=== PATIENT | male | born 1990 | race Caucasian/White ===

== ENCOUNTER 2019-01-17 12:49 | Day surgery (SDC) | payer OTHER ==
[~2019-01-17 12:49] MED LIST: BUPIVACAINE 0.5% PF 30 ML VIAL ONE; LIDOCAINE MPF 1%-EPI 1:200000 30 ML VIAL ONE
[2019-01-17] MEDS ORDERED: LACTATED RINGERS 1,000 ML IV ONE ×2 (13:05→16:44)
--- NOTE | 2019-01-17 13:49 | ANESTHESIA ---
Pre-Anesthesia VS, & Labs - Diagnosis pilonidal cyst - Procedure pilonidal cyst removal Vital Signs: Temp Pulse Resp BP Pulse Ox 36.6 C 59 L 16 147/99 H 98 01/17/19 13:06 01/17/19 13:06 01/17/19 13:06 01/17/19 13:06 01/17/19 13:06 Height 6 ft Weight (kg) 95.8 kg Home Medications and Allergies Allergies/Adverse Reactions: Allergies Allergy/AdvReac Type Severity Reaction Status Date / Time No Known Drug Allergies Allergy Verified 01/04/19 14:19 Anes History & Medical History - Anesthetic History Anesthesia Complications: reports: No previous complications Family history of Anesthesia Complications: Denies Family history of Malignant Hyperthermia: Denies - Medical History Cardiovascular: reports: None Pulmonary: reports: None Gastrointestinal: reports: None Urinary: reports: None Neuro: reports: None Musculoskeletal: reports: None Endocrine/Autoimmune: reports: None Skin: reports: None Psychosocial: reports: Other ("couple drinks a week") - Surgical History Orthopedic: ACL reconstruction Exam General: Alert, Oriented x3, Cooperative, No acute distress Dental: WNL Mouth Openin Fingerbreadth Neck Mobility: Normal Mallampati classification: II Thyromental Distance: 4-6 cm Respiratory: Lungs clear, Normal breath sounds, No respiratory distress, No accessory muscle use Cardiovascular: Regular rate, Normal S1, Normal S2, No murmurs Abdomen: Normal bowel sounds, Soft, No tenderness, No hepatospenomegaly, No masses Extremities: No clubbing, No cyanosis, No edema, Normal pulses, No tenderness/swelling Neurological: Normal gait, Normal speech, Strength at 5/5 X4 ext, Normal tone, Sensation intact, Cranial nerves 3-12 NL, Reflexes 2+ Mental/Cognitive Status: Alert/Oriented X3, Normal for patient Cognitive Status: Within normal limits Plan Anesthesia Type: General Consent for Procedure(s) Verified and Reviewed: Yes Code Status: Attempt Resuscitation ASA classification: 1-Healthy patient Is this case an emergency?: No
[2019-01-17] MEDS ORDERED: PROPOFOL 200 MG/20 ML VIAL IVP ONE (15:00)
[2019-01-17] MEDS ORDERED: GLYCOPYRROLATE 1 MG/5 ML VIAL IVP ONE (15:00)
[2019-01-17] MEDS ORDERED: SUCCINYLCHOLINE 200 MG/10 ML VIAL IVP ONE (15:00)
[2019-01-17] MEDS ORDERED: ROCURONIUM 50 MG/5 ML VIAL IVP ONE (15:00)
[2019-01-17] MEDS ORDERED: DEXAMETHASONE 4 MG/ML VIAL IVP ONE (15:00)
[2019-01-17] MEDS ORDERED: fentaNYL 100 MCG/2 ML VIAL IVP ONE (15:00)
[2019-01-17] MEDS ORDERED: ONDANSETRON 4 MG/2 ML VIAL IVP ONE (15:00)
[2019-01-17] MEDS ORDERED: MIDAZOLAM 2 MG/2 ML VIAL IVP ONE (15:00)
[2019-01-17] MEDS ORDERED: metroNIDAZOLE 500 MG/100 ML 500 MG/100 ML BAG ONE (15:52)
--- NOTE | 2019-01-17 16:08 | OPERATIVE REPORT ---
Operative Report - General Procedure Date: 01/17/19 Planned Procedure: Excision of pilonidal cyst with closure Pre-Op Diagnosis: Pilonidal cyst Procedure Performed: Excision of pilonidal cyst with closure Post Op Diagnosis: Pilonidal cyst - Procedure Note Primary Surgeon: Elaina Anesthesia Provider: EDUARDO Call Anesthesia Technique: General ET tube, Local Pathology: Portion of skin and cystic lesion to pathology in formalin Estimated Blood Loss (mL): 10 Findings: 7 x 4 cm pilonidal cyst with associated abscess cavity Complications: None apparent - Other Other Information/Narrative: After obtaining informed consent, the patient is brought to the operating room.Following successful induction of general endotracheal anesthesia, appropriate padding of all bony prominences, and placement of appropriate monitors, the patient was rolled gently to the prone jackknife position. The perianalAnd inferior spinal regions were prepped and draped in the standard surgical fashion.A timeout was held per scope protocol. All elements of the surgical safety checklist were followed before, during, and after the procedure. Using a marker, an incision was fashioned around the existing puncta to include all of the obvious areas affected by the cystic lesion. The lesion itself was approximately 7 x 3 cm in greatest dimension. This area was anesthetized with local anesthetic. An incision was created sharply and carried down through the tissue to remove the entire specimen in a single piece. The elliptical tissue was then marked with a short stitch superior and passed from the table. The defect was slightly off center to the left side. It extended to the midline. The entire area was irrigated with copious amounts of warm saline solution and aspirated free of all fluid and particulate matter. We were careful to have not entered the abscess cavity when the lesion was excised. The wound was then closed in multiple layers with Vicryl suture and 3-0 nylon sutures were applied to the skin. All sponge, needle, and instrument counts were correct at the conclusion of the case. The patient was allowed to awaken from anesthesia without difficulty and taken to the postanesthesia care unit in good condition.
[2019-01-17] MEDS ORDERED: ONDANSETRON 4 MG/2 ML VIAL IVP PRN (16:11)
[2019-01-17] MEDS ORDERED: oxyCODONE 5 MG TABLET PO PRN (16:11)
[2019-01-17] MEDS ORDERED: HYDROmorphone 0.5 MG/0.5 ML SYRINGE IVP PRN (16:11)
[2019-01-17 17:08] VITALS: BP 119/73
== END 2019-01-17 12:50 | disposition home or self-care (01) ==
LOC: SDS 12:49
PROVIDERS: ATTEND Surgery
PROC: 0JB90ZZ Excision of Buttock Subcutaneous Tissue and Fascia, Open Approach (ICD-10-PCS; principal; 2019-01-17 14:45)
DX: L05.01 Pilonidal cyst with abscess (principal); Z87.891 Personal history of nicotine dependence
CPT/HCPCS: 11770; A9270; J0330; J7120

== ENCOUNTER 2022-06-27 18:00 | Outpatient (CLI) | payer OTHER | END 2022-06-27 23:59 | disposition critical access hospital (66) | LOC: EMS 18:00 | DX: R53.1 Weakness (principal); R42 Dizziness and giddiness; R20.0 Anesthesia of skin; R47.81 Slurred speech; R25.1 Tremor, unspecified | CPT/HCPCS: A0425; A0429 ==

== ENCOUNTER 2022-06-27 18:07 | Observation (INO) | payer OTHER ==
--- NOTE | 2022-06-27 18:14 | ED Physician Documentation ---
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 EMS states that he had sudden onset of slurred speech, difficulty with word finding that occurred about 30 minutes prior to arrival. They state that he improved on route to the hospital but is having difficulty with word finding again upon arrival. Patient denies any fevers or trauma. He states that he moved here but he does not know from where. He denies taking any medications or have any medical history. Denies any drug usage. Has used nicotine in concentrated form. Has reportedly had intermittent headaches for the past 3 days, the patient's was on scene. Review of Systems Unable to obtain: AMS PD PAST MEDICAL HISTORY - Past Medical History Cardiovascular: None Respiratory: None Neuro: None Endocrine/Autoimmune: None GI: None : None HEENT: None Psych: None Musculoskeletal: None Derm: None - Past Surgical History Ortho: ACL reconstruction - Present Medications Home Medications: Ambulatory Orders Medication Instructions Recorded Confirmed Ondansetron Odt [Zofran] 4 mg TL Q6H PRN #10 tablet 01/17/19 oxyCODONE [Roxicodone] 5 mg PO Q4H PRN #30 tablet 01/17/19 - Allergies Allergies/Adverse Reactions: Allergies Allergy/AdvReac Type Severity Reaction Status Date / Time No Known Drug Allergies Allergy Verified 06/27/22 18:23 PD ED PE NORMAL - Vitals Vital signs reviewed: Yes - General General: No acute distress, Other (Alert, difficulty with word finding, slow to respond.) - HEENT HEENT: Atraumatic, PERRL, Moist mucous membranes, Pharynx benign - Neck Neck: Supple, no meningeal sign - Cardiac Cardiac: No murmur, Strong equal pulses, Other (Tachycardic) - Respiratory Respiratory: No respiratory distress, Clear bilaterally - Abdomen Abdomen: Soft, Non tender, Non distended - Derm Derm: Warm and dry, No rash - Extremities Extremities: No deformity, No edema, No calf tenderness / cord - Neuro Neuro: business process consultant 2-12 intact, No motor deficit, No sensory deficit, Normal speech Eye Opening: Spontaneous Motor: Obeys Commands Verbal: Confused GCS Score: 14 - Psych Psych: Normal mood, Normal affect NIHSS - Time Time: 18:10 - Level of Consciousness Level of consciousness: (0) Alert, Keenly responsive LOC Questions: (0) Answers both Q's correct LOC Commands: (0) Performs both correctly - Gaze Best Gaze: (0) Normal - Visual Visual: (0) No loss - Facial Palsy Facial Palsy: (0) Normal, symmetrical movement - Motor Arms (both separate) Motor Arm (right): (0) No drift Motor Arm (left): (0) No drift - Motor Legs (both separate) Motor Leg (right): (0) No drift Motor Leg (left): (0) No drift - Limb Ataxia Limb Ataxia: (0) Absent - Sensory Sensory: (0) Normal - Best Language Best Language: (1) [id number] - Dysarthria Dysarthria: (2) Severe dysarthria - Extinction and Inattention (formally neg Extinction and inattention: (0) No abnormality - Total Score/Results Total Score/Result: 3 Results - Vitals Vitals: Vital Signs - 24 hr 06/27/22 06/27/22 06/27/22 18:51 20:00 20:30 Temperature 37.3 C Heart Rate 118 H 116 H 109 H Respiratory 29 H 19 25 H Rate Blood Pressure 167/86 H 175/97 H 128/110 H O2 Saturation 99 99 98 06/27/22 06/27/22 06/27/22 21:00 21:30 22:00 Temperature Heart Rate 98 82 72 Respiratory 18 Rate Blood Pressure 148/72 H O2 Saturation 98 100 100 Oxygen O2 Source Room air - EKG (time done) 1846 EKG releavant findings:: EKG personally interpreted by author of this note. Relevant findings are: Rate: Rate (enter#) (122) Rhythm: Sinus tachycardia [place]: Normal Intervals: Normal SD QRS: Normal Ischemia: Normal ST segments - Labs Labs: Laboratory Tests 06/27/22 06/27/22 06/27/22 18:44 18:44 18:44 WBC 8.6 RBC 5.24 Hgb 16.2 Hct 45.2 MCV 86.3 MCH 30.9 MCHC 35.8 RDW 11.8 L Plt Count 254 MPV 9.6 Neut # (Auto) 4.4 Lymph # (Auto) 3.3 [place] # (Auto) 0.7 Eos # (Auto) 0.2 Baso # (Auto) 0.0 Absolute Nucleated RBC 0.00 Nucleated RBC % 0.0 Sodium 140 Potassium 3.0 L Chloride 102 Carbon Dioxide 24 Anion Gap 14.0 H BUN 16 Creatinine 0.9 Estimated GFR (MDRD) 98 Glucose 121 H Calcium 9.1 Total Bilirubin 0.9 AST 37 ALT 65 H Alkaline Phosphatase 70 Total Protein 7.6 Albumin 4.7 Globulin 2.9 Albumin/Globulin Ratio 1.6 Lipase 39 TSH 1.19 Urine Color Urine Clarity Urine pH Ur Specific Amelia Urine Protein Urine Glucose (UA) Urine Ketones Urine Occult Blood Urine Nitrite Urine Bilirubin Urine Urobilinogen Ur Leukocyte Esterase Ur Microscopic Review Urine Culture Comments Salicylates < 6.0 Urine Opiates Screen Ur Oxycodone Screen Urine Methadone Screen Ur Propoxyphene Screen Acetaminophen < 10 L Ur Barbiturates Screen Ur Tricyclics Screen Ur Phencyclidine Scrn Ur Amphetamine Screen U Methamphetamines Scrn U Benzodiazepines Scrn Urine Cocaine Screen U Cannabinoids Screen Ethyl Alcohol < 5.0 06/27/22 21:20 WBC RBC Hgb Hct MCV MCH MCHC RDW Plt Count MPV Neut # (Auto) Lymph # (Auto) [place] # (Auto) Eos # (Auto) Baso # (Auto) Absolute Nucleated RBC Nucleated RBC % Sodium Potassium Chloride Carbon Dioxide Anion Gap BUN Creatinine Estimated GFR (MDRD) Glucose Calcium Total Bilirubin AST ALT Alkaline Phosphatase Total Protein Albumin Globulin Albumin/Globulin Ratio Lipase TSH Urine Color YELLOW Urine Clarity CLEAR Urine pH 7.0 Ur Specific Amelia <=1.005 Urine Protein NEGATIVE Urine Glucose (UA) NEGATIVE Urine Ketones NEGATIVE Urine Occult Blood TRACE-LYSE Urine Nitrite NEGATIVE Urine Bilirubin NEGATIVE Urine Urobilinogen 0.2 (NORMAL) Ur Leukocyte Esterase NEGATIVE Ur Microscopic Review NOT INDICATED Urine Culture Comments NOT INDICATED Salicylates Urine Opiates Screen NEGATIVE Ur Oxycodone Screen NEGATIVE Urine Methadone Screen NEGATIVE Ur Propoxyphene Screen NEGATIVE Acetaminophen Ur Barbiturates Screen NEGATIVE Ur Tricyclics Screen NEGATIVE Ur Phencyclidine Scrn NEGATIVE Ur Amphetamine Screen NEGATIVE U Methamphetamines Scrn NEGATIVE U Benzodiazepines Scrn POSITIVE H Urine Cocaine Screen NEGATIVE U Cannabinoids Screen NEGATIVE Ethyl Alcohol - Rads (name of study) CT angio head Relevant Findings:: Final report received, See rad report CT angio neck Relevant Findings:: Final report received, See rad report MRI brain without Relevant Findings:: Final report received, See rad report PD Medical Decision Making - ED course Complexity details: reviewed results, re-evaluated patient, considered differential, d/w patient, d/w family, d/w systems security consultant ED course: The patient was taken immediately upon arrival to CT. CT head and neck angiogram does not show any acute abnormalities. Patient was activated as a code stroke. The patient was evaluated by neurology. Dr. Chou, neuro, Offered the patient tPA, but due to confusion the patient was having difficulty understanding this. Patient appeared very agitated and anxious as well. The patient's did arrive in the emergency department after this consultation. She states that they have moved here from [place]. She states that he was with a friend last night who is also in the [employer]. She does state that he uses nicotine ZYN pouches. As the patient is rapidly improving, she declines tPA at this time. Patient did improve with Ativan. No acute findings on brain MRI. His heart rate decreased, blood pressure decreased, did complain of a continued headache and this was treated with Toradol and droperidol IV. He is still having some w ord finding difficulties and difficulties with memory. Possible complex migraine versus accidental nicotine overdose. He was using 6 mg nicotine patches, he does not recall exactly how many he used today. We will place him in observation overnight for reassessment in the morning. Discussed the case with the telemetry hospitalist who accepts. This document was made in part using voice recognition software. While efforts are made to proofread this document, sound alike and grammatical errors may occur. Departure - Departure Disposition: ED Place in Observation Clinical Impression: Altered mental status Qualifiers: Altered mental status type: unspecified Qualified Code(s): R41.82 - Altered mental status, unspecified Migraine Qualifiers: Migraine type: unspecified Status migrainosus presence: without status migrainosus Intractability: not intractable Qualified Code(s): G43.909 - Migraine, unspecified, not intractable, without status migrainosus Condition: Stable
[2022-06-27] MEDS ORDERED: iohexoL-300 100 ML VIAL IVP ONE (18:40)
--- NOTE | 2022-06-27 18:46 | CT Report ---
PROCEDURE: CT angiogram neck with contrast INDICATIONS: dysarthria CONTRAST: 80ml omni 300 TECHNIQUE: After the administration of intravenous contrast, 1.5 mm axial sections acquired from the aortic arch to the [place] of [place]. Coronal 3-D maximum intensity projection (MIP) and/or volume rendering ref ormats were then performed. For radiation dose reduction, the following was used: automated exposur e control, adjustment of mA and/or kV according to patient size. COMPARISON: None. FINDINGS: Image quality: Study is limited by bolus timing Carotid system: The great vessels demonstrate a conventional anatomy as they arise from the aortic a rch. The origins of the common carotid arteries appear patent. The common carotid arteries demonstr ate normal calibers and courses. The bifurcation regions appear normal bilaterally. The internal ca rotid arteries demonstrate normal caliber and course. Posterior circulation: The origins of the vertebral arteries appear patent. The more superior porti ons of the vertebral arteries demonstrate normal course and caliber. They join to form a normal appe aring basilar artery. Soft tissues: Visualized neck soft tissues demonstrate no suspicious abnormalities. The thyroid is normal in size and there are no incidental findings. Bones: No suspicious bony lesions. Visualized cervical spine appears normally aligned. IMPRESSION: Study limited by bolus timing. No evidence of large vessel occlusion, significant stenosis or aneurys m in the neck The estimate of stenosis included in the report of the imaging study was calculated using the NASCET method Reviewed by: Vin Rothman MD on 06/27/2022 5:44 PM ITZ Approved by: Vin Rothman MD on 06/27/2022 5:44 PM AKKRISTEN Station ID: [id number]
--- NOTE | 2022-06-27 18:47 | CT Report ---
PROCEDURE: ANGIO HEAD W/WO INDICATIONS: dysarthria CONTRAST: 80ml omni 300 TECHNIQUE: Precontrast 4.5 mm thick angled axial sections acquired from the foramen magnum to the vertex. Afte r the administration of intravenous contrast, 1 mm thick sections acquired through the [place] of [place] is. Postcontrast 4.5 mm thick sections then re-acquired from the foramen magnum to the vertex. 3-di mensional vjusqcq-qzzzbxquh-ucosyozycm (MIP) and/or volume rendering reformats were acquired of the c entral intracranial vasculature. For radiation dose reduction, the following was used: automated ex posure control, adjustment of mA and/or kV according to patient size. COMPARISON: Not available. FINDINGS: Image quality: There are motion artifacts at the skull base. Arteries are suboptimally opacified jasbir use of injected malfunction. Anterior and posterior circulation: Poorly opacified cerebral arteries. CSF spaces: Ventricles are normal in size and shape. Basal cisterns are patent. No extra-axial flu id collections. Brain: No midline shift. No intracranial bleeds or masses. Coronel-white matter interface appears int act. Skull and face: Calvarium and facial bones appear intact, without suspicious lesions. Sinuses: Visualized sinuses and mastoids are clear. IMPRESSION: 1. No acute intracranial abnormality disease. 2. Cerebral angiogram images are suboptimal due to injector malfunction. Recommend repeat examination when clinically feasible. Reviewed by: Rivas Garcia MD on 06/27/2022 6:45 PM PDT Approved by: Rivas Garcia MD on 06/27/2022 6:45 PM PDT Station ID: [id number]
[2022-06-27] MEDS ORDERED: iohexoL-300 100 ML VIAL ONE (18:48)
[2022-06-27 18:51] LABS: BASOPHILS % (AUTO) 0.2 %; EOSINOPHILS # (AUTO) 0.2 10^3/uL (0.0-0.7); EOSINOPHILS % (AUTO) 1.7 %; HCT - HEMATOCRIT 45.2 % (42.0-52.0); HGB - HEMOGLOBIN 16.2 g/dL (14.0-18.0); LYMPHOCYTES # (AUTO) 3.3 10^3/uL (1.5-3.5); LYMPHOCYTES % (AUTO) 37.9 %; MEAN CORPUSCULAR HEMOGLOBIN 30.9 pg (27.0-31.0); MEAN CORPUSCULAR HGB CONC 35.8 g/dL (32.0-36.0); MEAN CORPUSCULAR VOLUME 86.3 fL (80.0-94.0); MEAN PLATELET VOLUME 9.6 fL (7.4-11.4); MONOCYTES # (AUTO) 0.7 10^3/uL (0.0-1.0); MONOCYTES % (AUTO) 8.3 %; NEUTROPHILS # (AUTO) 4.4 10^3/uL (1.5-6.6); NEUTROPHILS % (AUTO) 51.7 %; PLT - PLATELET COUNT 254 10^3/uL (130-450); RED BLOOD COUNT 5.24 10^6/uL (4.70-6.10); RED CELL DISTRIBUTION WIDTH 11.8 % (12.0-15.0); WHITE BLOOD COUNT 8.6 x10^3/uL (4.8-10.8)
[2022-06-27] MEDS ORDERED: LORazepam 2 MG/ML VIAL IVP STA (18:52)
[2022-06-27 19:10] LABS: ACETAMINOPHEN < 10 ug/mL (10-30); ALBUMIN 4.7 g/dL (3.2-5.5); ALBUMIN/GLOBULIN RATIO 1.6 (1.0-2.2); ALKALINE PHOSPHATASE 70 IU/L (42-121); ALT ALANINE AMINOTRANSFERASE 65 IU/L (10-60); AST ASPARTATE AMINOTRANSFERASE 37 IU/L (10-42); BILIRUBIN,TOTAL 0.9 mg/dL (0.2-1.0); BUN - BLOOD UREA NITROGEN 16 mg/dL (6-20); CALCIUM 9.1 mg/dL (8.5-10.3); CARBON DIOXIDE - CO2 24 mmol/L (21-32); CHLORIDE 102 mmol/L (101-111); CREATININE 0.9 mg/dL (0.6-1.2); ETOH - ETHANOL < 5.0 mg/dL; GFR - MDRD 98 (>89); GLUCOSE 121 mg/dL (70-100); LIPASE 39 U/L (22-51); SALICYLATE < 6.0 mg/dL; SODIUM 140 mmol/L (135-145); TOTAL PROTEIN 7.6 g/dL (6.7-8.2)
--- NOTE | 2022-06-27 20:09 | MRI Report ---
PROCEDURE: BRAIN WO INDICATIONS: altered TECHNIQUE: The patient could not complete the standard protocol and crawled out of the scanner before it could b e completed. The following imaging sequences were obtained: Sagittal T1 weighted, axial T2 blade, axial diffusion weighted images with ADC maps, and axial suscep tibility weighted images. COMPARISON: Correlation is made with the head and neck CT angiograms performed earlier in the day. FINDINGS: Image quality: There is prominent motion artifact, which limits this study. Images were repeated, wi th some improvement. CSF Spaces: Basal cisterns are patent. No extra-axial fluid collections. Ventricles are normal in size and shape. Brain: No intracranial masses or hemorrhage. Coronel/white matter interface is normal. Brainstem appe ars normal. Diffusion-weighted images demonstrate no acute ischemic insult. No chronic ischemic ins ults. Normal intravascular flow voids are present. Skull and face: Calvarium has normal marrow signal. Orbits appear normal. Sinuses: Sinuses and mastoids are clear. IMPRESSION: No salvador acute abnormality is seen on this study, although it is limited by prominent motion artifact . If clinically appropriate, please consider short-term follow-up repeat study, the patient is able to remain still for the examination. Reviewed by: Srinivasa Shaw MD on 06/27/2022 7:07 PM ITZ Approved by: Srinivasa Shaw MD on 06/27/2022 7:07 PM ITZ Station ID: [id number]
[2022-06-27 21:24] LABS: MUDS CUTOFF CONCENTRATIONS CUTOFF CONC BELOW:
[2022-06-27 21:26] LABS: BILIRUBIN,URINE NEGATIVE (NEGATIVE); GLUCOSE, URINE (UA) NEGATIVE (NEGATIVE); KETONES,URINE (UA) NEGATIVE (NEGATIVE); LEUKOCYTE ESTERASE, URINE NEGATIVE (NEGATIVE); NITRITE,URINE NEGATIVE (NEGATIVE); OCCULT BLOOD,URINE TRACE-LYSE (NEGATIVE); PROTEIN,URINE NEGATIVE (NEGATIVE); UROBILINOGEN,URINE 0.2 (NORMAL) E.U./dL (NORMAL)
[2022-06-27 21:27] LABS: CLARITY,URINE CLEAR (CLEAR)
[2022-06-27 21:43] LABS: AMPHETAMINE SCREEN,URINE NEGATIVE (NEGATIVE); BARBITURATE SCREEN,UR NEGATIVE (NEGATIVE); BENZODIAZEPINES SCREEN, URINE POSITIVE (NEGATIVE); COCAINE SCREEN URINE NEGATIVE (NEGATIVE); METHADONE SCREEN, URINE NEGATIVE (NEGATIVE); METHAMPHETAMINES SCREEN, URINE NEGATIVE (NEGATIVE); OPIATE SCREEN, URINE NEGATIVE (NEGATIVE); OXYCODONE SCREEN, URINE NEGATIVE (NEGATIVE); PROPOXYPHENE SCREEN, URINE NEGATIVE (NEGATIVE); THC CANNABINOID SCREEN, URINE NEGATIVE (NEGATIVE); TRICYCLIC ANTIDEPRESSANT,URINE NEGATIVE (NEGATIVE)
[2022-06-27] MEDS ORDERED: DROPERIDOL 5 MG/2 ML VIAL IVP STA (21:59)
[2022-06-27] MEDS ORDERED: KETOROLAC 30 MG/ML VIAL IVP STA (21:59)
[2022-06-27] MEDS ORDERED: POTASSIUM CHLORIDE 20 MEQ TABLET PO STA (22:14)
[2022-06-27] MEDS ORDERED: ONDANSETRON 4 MG/2 ML VIAL IVP PRN (22:17)
[2022-06-27] MEDS ORDERED: ACETAMINOPHEN 325 MG TABLET PO PRN (22:17)
[2022-06-27] MEDS ORDERED: SODIUM CHLORIDE FLUSH 0.9% 10 ML SYRINGE IVP PRN (22:17)
--- NOTE | 2022-06-27 22:37 | HISTORY & PHYSICAL EXAMINATION ---
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 Patient has been in ER about about 4 hours now. As per ER physician, stroke alert was called. NPO TPA was given. CTA head and neck showed no acute findings. MRI brain showed no acute findings. Pt is alert and awake. Able to move all extremities. Denies VIRK, chest pain or SOB, nausea, vomiting Pt is afebrile Labs showed K 3.0, WBC normal Patient is admitted under observation due to AMS, acute encephalopathy, hypokalemia History - Past Medical History Cardiovascular: reports: None Respiratory: reports: None Neuro: reports: None Endocrine/Autoimmune: reports: None GI: reports: None : reports: None HEENT: reports: None Psych: reports: None Musculoskeletal: reports: None Derm: reports: None MRSA Hx?: No - Past Surgical History Ortho: reports: ACL reconstruction Meds/Allgy - Home Medications Home Medications: Ambulatory Orders Medication Instructions Recorded Confirmed Ondansetron Odt [Zofran] 4 mg TL Q6H PRN #10 tablet 01/17/19 oxyCODONE [Roxicodone] 5 mg PO Q4H PRN #30 tablet 01/17/19 - Allergies Allergies/Adverse Reactions: Allergies Allergy/AdvReac Type Severity Reaction Status Date / Time No Known Drug Allergies Allergy Verified 06/27/22 18:23 Review of Systems - Constitutional Constitutional: reports: Fatigue, Weakness - Other Findings Other Findings: 10 points systems were reviewed and were negative except mentioned in HPI Exam - Vital Signs Vital Signs: Vital Signs x48h Temp Pulse Resp BP Pulse Ox 06/27/22 21:30 82 100 06/27/22 21:00 98 98 06/27/22 20:30 37.3 C 109 H 25 H 128/110 H 98 06/27/22 20:00 116 H 19 175/97 H 99 06/27/22 18:51 118 H 29 H 167/86 H 99 - Physical Exam General Appearance: positive: No acute distress, Alert, Other (CONFUSED) Eyes Bilateral: positive: Normal inspection ENT: positive: ENT inspection nml Neck: positive: Nml inspection Respiratory: positive: Breath sounds nml Cardiovascular: positive: Regular rate & rhythm Abdomen: positive: Non-tender, Nml bowel sounds, No distention Skin: positive: No rash Extremities: positive: No pedal edema Neurologic/Psychiatric: positive: Motor nml, Disoriented to person, Disoriented to place, Disoriented to time Conclusion/Plan - Lab Results Fish Bones: 06/27/22 18:44 06/27/22 18:44 - Other Other Results/Comments: A: Altered mental status Metabolic encephalopathy Hypokalemia Dehydration Possible nicotine overdose Plan: Admit for observation NPO Swallow eval NS @ 100 cc/h Monitor mental status Neuro checks q4h Replace k and monitor Monitor I/O, elcetrolytes Supportive care DVT prophylaxic: SCD Full code Pt is admitted under observation
[2022-06-27] MEDS: SODIUM CHLORIDE 0.9% 1,000 ML IV SCH (23:37)
[2022-06-27] MEDS ORDERED: SODIUM CHLORIDE 0.9% 1,000 ML IV ONE (23:39)
[2022-06-28] MEDS: SODIUM CHLORIDE FLUSH 0.9% 10 ML SYRINGE IVP SCH ×2 (04:21→08:49)
[2022-06-28 05:15] LABS: CALCIUM 8.9 mg/dL (8.5-10.3); CREATININE 0.8 mg/dL (0.6-1.2); POTASSIUM 4.1 mmol/L (3.5-5.0)
[2022-06-28 07:38] VITALS: BP 117/63
[2022-06-28] MEDS: SODIUM CHLORIDE 0.9% 1,000 ML IV SCH (08:51)
[2022-06-28 09:23] LABS: ALBUMIN 4.2 g/dL (3.2-5.5); BILIRUBIN,DIRECT 0.2 mg/dL (0.1-0.5); TOTAL PROTEIN 6.7 g/dL (6.7-8.2)
--- NOTE | 2022-06-28 10:52 | PROVIDER PROGRESS NOTE ---
Assessment/Plan - Problem List (1) Stroke-like symptoms Assessment/Plan: 06/27 (ED Admission Note): Patient is a 32-year-old male, [employer] brought in by EMS. EMS states that he had sudden onset of slurred speech, difficulty with word finding that occurred about 30 minutes prior to arrival. They state that he improved on route to the hospital but is having difficulty with word finding again upon arrival. Patient denies any fevers or trauma. He states that he moved here but he does not know from where. He denies taking any medications or have any medical history. Denies any drug usage. Has used nicotine in concentrated form. Has reportedly had intermittent headaches for the past 3 days, the patient's was on scene. CT head/neck and MRI showed no acute findings. 06/28: Patient is neurologically intact today. Able to walk around the room and converse appropriately with myself and his family. He reports to me that he has been having on and off throbbing headaches for the past few weeks, but he has never been formally diagnosed with migraines. However yesterday, while he was at [employer], he was experiencing numbness and tingling down the right side of his body, and the feeling of "the room spinning" which he described further by saying he was unable to focus on certain people or objects. This was the first time he had ever experienced these symptoms. He then proceeded to get in his car, and once there he started to experience slurred speech which his also noticed. She called 911 and when the ambulance arrived they also noticed that he was slurred. Once in the ED, his said that he seemed frustrated not being able to talk and understand what people were saying to him. During this time, he said he didn't notice the numbness/tingling to his right side anymore, nor did he have feelings of the room spinning or hearing loss. His told me that he appeared to have full strength of his body, but he was uncoordinated. She said she tried to hand him a pen in the ED and he was having trouble grabbing it, which suggests ataxia. Patient states that about 8 hours later was when he was starting to feel like "he was coming out of it," meaning he felt like he was slowly getting his speech back. Bedside Echo was performed which showed a structurally normal heart, including bubble study ruling out PFO. Plan: Have patient follow up with outpatient MRI and neurologist [place]. Take baby aspirin once daily for stroke prevention. (2) Dehydration 06/28: Patient and his have been driving across the country for approximately two weeks from [place]. They state that in that time they have not been adhering to their normal diet. Patient states that everyday he drinks one to two caffeinated beverages, usually Celsius or Yerba Mate (which have 200 mg and 150 mg in them, respectively) meaning he could ingest up to 350 mg ca ffeine per day. He said yesterday he had a cold brew coffee from [employer] before the symptoms started. They have also been eating at restaurants a lot, which usually involves having one to two alcoholic beverages. He acknowledges that he hasn't been drinking as much water as he probably should be. Additionally, he takes ZYN 6 mg nicotine pouches because he said he used to use dip tobacco. When asked about smoking cigarettes, he said he's only had about a handful of them in his life, and that he mostly just dipped. He states that yesterday (the day of his symptoms) he did not have any ZYN, but the day before he had two of them, which totals 12 mg of nicotine. His stated she was concerned about nicotine withdrawal symptoms, because she is never sure how much he is taking. Plan: Talked with patient about drinking less energy drinks and using less nicotine products, and he acknowledged that he needs to cut back on his intake. (3) Hypokalemia 06/27: BMP on admission showed K of 3.0. He was repleted with 40 mEq PO of potassium chloride. 06/28: BMP showed K had increased to 4.1. Plan: Hypokalemia resolved after repletion. - Current Meds Current Meds: Current Medications Generic Name Dose Route Start Last Admin Trade Name Freq PRN Reason Stop Dose Admin Acetaminophen 650 mg 06/27/22 22:17 06/28/22 04:18 Acetaminophen 325 Mg Tablet PO 650 mg Q4HR PRN Administration Pain 1 to 4, or Fever Sodium Chloride 1,000 mls @ 100 mls/hr 06/27/22 23:00 06/28/22 08:51 Normal Saline 0.9% IV 100 mls/hr .Q10H BENITO Administration Sodium Chloride 10 ml 06/28/22 01:00 06/28/22 08:49 Sodium Chloride Flush 0.9% 10 Ml Syringe IVP 10 ml 0100,[id number],1700 BENITO Administration - Lab Result Fish Bone Diagrams: 06/27/22 18:44 06/28/22 05:01 <Stefanie Jonas - Last Filed: 06/28/22 16:04> - Current Meds Current Meds: Attestation: I attest that the patient was seen and examined by me with a separate encounter after being seen by the DNP student. I reviewed the student's documentation including patient history, physical examination, labora tory, imaging, clinical assessment, and treatment plan. I have discussed the management of the patient with the student, with the patient, and there are no changes. - Lab Result Fish Bone Diagrams: 06/27/22 18:44 06/28/22 05:01 <Татьяна Sadler - Last Filed: 06/28/22 16:06> Subjective - Subjective Patient Reports: Feeling Better, Resting Comfortably, No Complaints (Patient stated that he feels much better from yesterday.) Nursing Reports: No Complaints <Stefanie Jonas - Last Filed: 06/28/22 16:04> Objective Vital Signs: Vital Signs - 24 hr 06/27/22 06/27/22 06/27/22 18:51 20:00 20:30 Temperature 37.3 C Heart Rate 118 H 116 H 109 H Heart Rate [ Brachial] Respiratory 29 H 19 25 H Rate Blood Pressure 167/86 H 175/97 H 128/110 H Blood Pressure [Left Brachial artery] Blood Pressure [Right Brachial artery] O2 Saturation 99 99 98 06/27/22 06/27/22 06/27/22 21:00 21:30 22:00 Temperature Heart Rate 98 82 72 Heart Rate [ Brachial] Respiratory 18 Rate Blood Pressure 148/72 H Blood Pressure [Left Brachial artery] Blood Pressure [Right Brachial artery] O2 Saturation 98 100 100 06/27/22 06/28/22 06/28/22 23:39 03:34 07:35 Temperature 36.9 C 37.0 C 36.5 C Heart Rate Heart Rate [ 78 69 67 Brachial] Respiratory 22 16 16 Rate Blood Pressure Blood Pressure 150/90 H [Left Brachial artery] Blood Pressure 127/57 L 117/63 [Right Brachial artery] O2 Saturation 100 96 97 Oxygen O2 Source Room air I&O (Last 24 Hrs): Intake and Output Totals x24h 06/26/22 06/27/22 06/28/22 23:59 23:59 23:59 Intake Total 1413.333 Balance 1413.333 General: Alert, Oriented x3, Cooperative, No acute distress HEENT: Atraumatic, PERRLA, EOMI, Mucous membr. moist/pink Neck: Supple, No JVD, No thyromegaly Lymphatic: no adenopathy Neuro: Alert, CN 2-12 Grossly Intact (Normal sensory, normal motor), Oriented Times 3 Cardiovascular: Regular rate, Normal S1, Normal S2, No murmurs Respiratory: No respiratory distress, Breath sounds nml Abdomen: Normal bowel sounds Extremities: No clubbing, No cyanosis, No edema Skin: No rashes, No breakdown, No significant lesion - Results Results: Laboratory Results WBC 8.6 x10^3/uL (4.8-10.8) 06/27/22 18:44 RBC 5.24 10^6/uL (4.70-6.10) 06/27/22 18:44 Hgb 16.2 g/dL (14.0-18.0) 06/27/22 18:44 Hct 45.2 % (42.0-52.0) 06/27/22 18:44 MCV 86.3 fL (80.0-94.0) 06/27/22 18:44 MCH 30.9 pg (27.0-31.0) 06/27/22 18:44 MCHC 35.8 g/dL (32.0-36.0) 06/27/22 18:44 RDW 11.8 % (12.0-15.0) L 06/27/22 18:44 Plt Count 254 10^3/uL (130-450) 06/27/22 18:44 MPV 9.6 fL (7.4-11.4) 06/27/22 18:44 Neut # (Auto) 4.4 10^3/uL (1.5-6.6) 06/27/22 18:44 Lymph # (Auto) 3.3 10^3/uL (1.5-3.5) 06/27/22 18:44 [place] # (Auto) 0.7 10^3/uL (0.0-1.0) 06/27/22 18:44 Eos # (Auto) 0.2 10^3/uL (0.0-0.7) 06/27/22 18:44 Baso # (Auto) 0.0 10^3/uL (0.0-0.1) 06/27/22 18:44 Absolute Nucleated RBC 0.00 x10^3/uL 06/27/22 18:44 Nucleated RBC % 0.0 /100WBC 06/27/22 18:44 Sodium 139 mmol/L (135-145) 06/28/22 05:01 Potassium 4.1 mmol/L (3.5-5.0) 06/28/22 05:01 Chloride 106 mmol/L (101-111) 06/28/22 05:01 Carbon Dioxide 25 mmol/L (21-32) 06/28/22 05:01 Anion Gap 8.0 (6-13) 06/28/22 05:01 BUN 15 mg/dL (6-20) 06/28/22 05:01 Creatinine 0.8 mg/dL (0.6-1.2) 06/28/22 05:01 Estimated GFR (MDRD) 112 (>89) 06/28/22 05:01 Glucose 127 mg/dL (70-100) H 06/28/22 05:01 Calcium 8.9 mg/dL (8.5-10.3) 06/28/22 05:01 Total Bilirubin 1.0 mg/dL (0.2-1.0) 06/28/22 05:01 Direct Bilirubin 0.2 mg/dL (0.1-0.5) 06/28/22 05:01 AST 27 IU/L (10-42) 06/28/22 05:01 ALT 53 IU/L (10-60) 06/28/22 05:01 Alkaline Phosphatase 58 IU/L (42-121) 06/28/22 05:01 Total Protein 6.7 g/dL (6.7-8.2) 06/28/22 05:01 Albumin 4.2 g/dL (3.2-5.5) 06/28/22 05:01 Globulin 2.5 g/dL (2.1-4.2) 06/28/22 05:01 Albumin/Globulin Ratio 1.6 (1.0-2.2) 06/27/22 18:44 Lipase 39 U/L (22-51) 06/27/22 18:44 TSH 1.19 uIU/mL (0.34-5.60) 06/27/22 18:44 Urine Color YELLOW 06/27/22 21:20 Urine Clarity CLEAR (CLEAR) 06/27/22 21:20 Urine pH 7.0 PH (5.0-7.5) 06/27/22 21:20 Ur Specific [place] <=1.005 (1.002-1.030) 06/27/22 21:20 Urine Protein NEGATIVE mg/dL (NEGATIVE) 06/27/22 21:20 Urine Glucose (UA) NEGATIVE mg/dL (NEGATIVE) 06/27/22 21:20 Urine Ketones NEGATIVE mg/dL (NEGATIVE) 06/27/22 21:20 Urine Occult Blood TRACE-LYSE (NEGATIVE) 06/27/22 21:20 Urine Nitrite NEGATIVE (NEGATIVE) 06/27/22 21:20 Urine Bilirubin NEGATIVE (NEGATIVE) 06/27/22 21:20 Urine Urobilinogen 0.2 (NORMAL) E.U./dL (NORMAL) 06/27/22 21:20 Ur Leukocyte Esterase NEGATIVE (NEGATIVE) 06/27/22 21:20 Ur Microscopic Review NOT INDICATED 06/27/22 21:20 Urine Culture Comments NOT INDICATED 06/27/22 21:20 Salicylates < 6.0 mg/dL 06/27/22 18:44 Urine Opiates Screen NEGATIVE (NEGATIVE) 06/27/22 21:20 Ur Oxycodone Screen NEGATIVE (NEGATIVE) 06/27/22 21:20 Urine Methadone Screen NEGATIVE (NEGATIVE) 06/27/22 21:20 Ur Propoxyphene Screen NEGATIVE (NEGATIVE) 06/27/22 21:20 Acetaminophen < 10 ug/mL (10-30) L 06/27/22 18:44 Ur Barbiturates Screen NEGATIVE (NEGATIVE) 06/27/22 21:20 Ur Tricyclics Screen NEGATIVE (NEGATIVE) 06/27/22 21:20 Ur Phencyclidine Scrn NEGATIVE (NEGATIVE) 06/27/22 21:20 Ur Amphetamine Screen NEGATIVE (NEGATIVE) 06/27/22 21:20 U Methamphetamines Scrn NEGATIVE (NEGATIVE) 06/27/22 21:20 U Benzodiazepines Scrn POSITIVE (NEGATIVE) H 06/27/22 21:20 Urine Cocaine Screen NEGATIVE (NEGATIVE) 06/27/22 21:20 U Cannabinoids Screen NEGATIVE (NEGATIVE) 06/27/22 21:20 Ethyl Alcohol < 5.0 mg/dL 06/27/22 18:44 - Procedures Procedures: Procedures EXCISION OF BUTTOCK SUBCU/FASCIA, OPEN APPROACH (01/17/19) <Stefanie Jonas - Last Filed: 06/28/22 16:04> Vital Signs: Vital Signs - 24 hr 06/27/22 06/27/22 06/27/22 18:51 20:00 20:30 Temperature 37.3 C Heart Rate 118 H 116 H 109 H Heart Rate [ Brachial] Respiratory 29 H 19 25 H Rate Blood Pressure 167/86 H 175/97 H 128/110 H Blood Pressure [Left Brachial artery] Blood Pressure [Right Brachial artery] O2 Saturation 99 99 98 06/27/22 06/27/22 06/27/22 21:00 21:30 22:00 Temperature Heart Rate 98 82 72 Heart Rate [ Brachial] Respiratory 18 Rate Blood Pressure 148/72 H Blood Pressure [Left Brachial artery] Blood Pressure [Right Brachial artery] O2 Saturation 98 100 100 06/27/22 06/28/22 06/28/22 23:39 03:34 07:35 Temperature 36.9 C 37.0 C 36.5 C Heart Rate Heart Rate [ 78 69 67 Brachial] Respiratory 22 16 16 Rate Blood Pressure Blood Pressure 150/90 H [Left Brachial artery] Blood Pressure 127/57 L 117/63 [Right Brachial artery] O2 Saturation 100 96 97 Oxygen O2 Source Room air I&O (Last 24 Hrs): Intake and Output Totals x24h 06/26/22 06/27/22 06/28/22 23:59 23:59 23:59 Intake Total 1773.333 Balance 1773.333 - Results Results: Laboratory Results WBC 8.6 x10^3/uL (4.8-10.8) 06/27/22 18:44 RBC 5.24 10^6/uL (4.70-6.10) 06/27/22 18:44 Hgb 16.2 g/dL (14.0-18.0) 06/27/22 18:44 Hct 45.2 % (42.0-52.0) 06/27/22 18:44 MCV 86.3 fL (80.0-94.0) 06/27/22 18:44 MCH 30.9 pg (27.0-31.0) 06/27/22 18:44 MCHC 35.8 g/dL (32.0-36.0) 06/27/22 18:44 RDW 11.8 % (12.0-15.0) L 06/27/22 18:44 Plt Count 254 10^3/uL (130-450) 06/27/22 18:44 MPV 9.6 fL (7.4-11.4) 06/27/22 18:44 Neut # (Auto) 4.4 10^3/uL (1.5-6.6) 06/27/22 18:44 Lymph # (Auto) 3.3 10^3/uL (1.5-3.5) 06/27/22 18:44 [place] # (Auto) 0.7 10^3/uL (0.0-1.0) 06/27/22 18:44 Eos # (Auto) 0.2 10^3/uL (0.0-0.7) 06/27/22 18:44 Baso # (Auto) 0.0 10^3/uL (0.0-0.1) 06/27/22 18:44 Absolute Nucleated RBC 0.00 x10^3/uL 06/27/22 18:44 Nucleated RBC % 0.0 /100WBC 06/27/22 18:44 Sodium 139 mmol/L (135-145) 06/28/22 05:01 Potassium 4.1 mmol/L (3.5-5.0) 06/28/22 05:01 Chloride 106 mmol/L (101-111) 06/28/22 05:01 Carbon Dioxide 25 mmol/L (21-32) 06/28/22 05:01 Anion Gap 8.0 (6-13) 06/28/22 05:01 BUN 15 mg/dL (6-20) 06/28/22 05:01 Creatinine 0.8 mg/dL (0.6-1.2) 06/28/22 05:01 Estimated GFR (MDRD) 112 (>89) 06/28/22 05:01 Glucose 127 mg/dL (70-100) H 06/28/22 05:01 Calcium 8.9 mg/dL (8.5-10.3) 06/28/22 05:01 Total Bilirubin 1.0 mg/dL (0.2-1.0) 06/28/22 05:01 Direct Bilirubin 0.2 mg/dL (0.1-0.5) 06/28/22 05:01 AST 27 IU/L (10-42) 06/28/22 05:01 ALT 53 IU/L (10-60) 06/28/22 05:01 Alkaline Phosphatase 58 IU/L (42-121) 06/28/22 05:01 Total Protein 6.7 g/dL (6.7-8.2) 06/28/22 05:01 Albumin 4.2 g/dL (3.2-5.5) 06/28/22 05:01 Globulin 2.5 g/dL (2.1-4.2) 06/28/22 05:01 Albumin/Globulin Ratio 1.6 (1.0-2.2) 06/27/22 18:44 Lipase 39 U/L (22-51) 06/27/22 18:44 TSH 1.19 uIU/mL (0.34-5.60) 06/27/22 18:44 Urine Color YELLOW 06/27/22 21:20 Urine Clarity CLEAR (CLEAR) 06/27/22 21:20 Urine pH 7.0 PH (5.0-7.5) 06/27/22 21:20 Ur Specific [place] <=1.005 (1.002-1.030) 06/27/22 21:20 Urine Protein NEGATIVE mg/dL (NEGATIVE) 06/27/22 21:20 Urine Glucose (UA) NEGATIVE mg/dL (NEGATIVE) 06/27/22 21:20 Urine Ketones NEGATIVE mg/dL (NEGATIVE) 06/27/22 21:20 Urine Occult Blood TRACE-LYSE (NEGATIVE) 06/27/22 21:20 Urine Nitrite NEGATIVE (NEGATIVE) 06/27/22 21:20 Urine Bilirubin NEGATIVE (NEGATIVE) 06/27/22 21:20 Urine Urobilinogen 0.2 (NORMAL) E.U./dL (NORMAL) 06/27/22 21:20 Ur Leukocyte Esterase NEGATIVE (NEGATIVE) 06/27/22 21:20 Ur Microscopic Review NOT INDICATED 06/27/22 21:20 Urine Culture Comments NOT INDICATED 06/27/22 21:20 Salicylates < 6.0 mg/dL 06/27/22 18:44 Urine Opiates Screen NEGATIVE (NEGATIVE) 06/27/22 21:20 Ur Oxycodone Screen NEGATIVE (NEGATIVE) 06/27/22 21:20 Urine Methadone Screen NEGATIVE (NEGATIVE) 06/27/22 21:20 Ur Propoxyphene Screen NEGATIVE (NEGATIVE) 06/27/22 21:20 Acetaminophen < 10 ug/mL (10-30) L 06/27/22 18:44 Ur Barbiturates Screen NEGATIVE (NEGATIVE) 06/27/22 21:20 Ur Tricyclics Screen NEGATIVE (NEGATIVE) 06/27/22 21:20 Ur Phencyclidine Scrn NEGATIVE (NEGATIVE) 06/27/22 21:20 Ur Amphetamine Screen NEGATIVE (NEGATIVE) 06/27/22 21:20 U Methamphetamines Scrn NEGATIVE (NEGATIVE) 06/27/22 21:20 U Benzodiazepines Scrn POSITIVE (NEGATIVE) H 06/27/22 21:20 Urine Cocaine Screen NEGATIVE (NEGATIVE) 06/27/22 21:20 U Cannabinoids Screen NEGATIVE (NEGATIVE) 06/27/22 21:20 Ethyl Alcohol < 5.0 mg/dL 06/27/22 18:44 - Procedures Procedures: Procedures EXCISION OF BUTTOCK SUBCU/FASCIA, OPEN APPROACH (01/17/19) <Татьяна Sadler - Last Filed: 06/28/22 16:06> ABX Reporting Has patient been on IV antibiotics over the past 48 hours?: No <Stefanie Jonas - Last Filed: 06/28/22 16:04>
--- NOTE | 2022-06-28 13:22 | Discharge Plan ---
Discharge Plan Problem Reviewed?: Yes Disposition: Home, Self Care Condition: Stable Prescriptions: Aspirin EC [Ecotrin] 81 mg PO DAILY #30 tablet Diet: Regular Instruction Topics: Transient Ischemic Attack Dc Health Concerns: You were in the hospital to evaluate a new neurologic deficit which included abnormal vision, dizziness, right-sided numbness and then muscle clumsiness and inability to find words. The symptoms resolved on their own in less than 12 hours. The imaging of your brain did not show a stroke. The bedside Echocardiogram showed that you have a structurally normal heart. We therefore think this was a TIA (transient ischemic attack). It is recommended that you have evaluation by a Neurologist to review these symptoms and to complete the evaluation. You will need to be seen by a primary care provider at the [facility] and have referral to a Neurologist. It is recommended that you take 1 baby aspirin daily for stroke prevention, possibly lifelong or as per the Neurologist's recommendations. Please decrease the amount of high-caffeine energy drinks that you consume, and stop using the nicotine pouches. Plan of Treatment: As above. Care Goals: Improvement in symptoms and stabilization are the goals. Assessment: The patient understands and is agreeable with the plan. Additional Instructions or Follow Up instructions: If you have new or recurrent or worsening symptoms, come to the ER. No Smoking: If you smoke, Please STOP! Call for help.
--- NOTE | 2022-06-28 18:06 | PROVIDER PROGRESS NOTE ---
Hospitalist Cross-cover Note - Cross-Cover Note Cross-Cover Note: ECHOCARDIOGRAM REPORT 06/28/22 As a Board-certified Senior Engineering Tech, credentialed to do and interpret Echoes, I performed a bedside Echo with Doppler study and bubble study on this patient. Indication: Stroke-like symptoms (TIA). Image quality: Good Findings: Normal left atrial size, normal right atrial size. Normal aortic root diameter size Normal left ventricular size and wall thickness, normal LV contractility, ejection fraction 60 to 65%. Normal right ventricular size and wall thickness, normal RV contractility. The mitral and tricuspid valves appear structurally normal. The aortic and pulmonic valves were poorly visualized. Doppler exam of the valves shows only trace mitral regurgitation. No pericardial effusion And agitated "bubble" study was performed via injection through his peripheral IV. There was no passage of "bubbles" from the right heart to the left heart at rest or after cough. Summary: Structurally normal heart.
== END 2022-06-28 13:53 | disposition home or self-care (01) ==
LOC: EDUNIT# → ED 18:07 → OBS 22:17 → MS2 22:17 → UNDOADMOB 22:17 → UNDODISOB 06-28 13:53
PROVIDERS: ADMIT Internal Medicine; ATTEND Internal Medicine
DX: G45.9 Transient cerebral ischemic attack, unspecified (principal); R41.82 Altered mental status, unspecified; G93.41 Metabolic encephalopathy; E87.6 Hypokalemia; E86.0 Dehydration; G43.909 Migraine, unspecified, not intractable, without status migrainosus
CPT/HCPCS: 36415; 51701; 70496; 70498; 70551; 80048; 80053; 80076; 80306; 80307; 80320; 80329; 81003; 83690; 84443; 85025; 93005; 96374; 96375; 99285; A9270; G0378; J2060; Q9967; 81001; 87086

== ENCOUNTER 2022-07-03 11:55 | Inpatient (IN) | payer OTHER ==
[2022-07-03] MEDS ORDERED: THIAMINE INJ 100 MG in SODIUM CHLORIDE 0.9% 50 ML IV STA (12:04)
[2022-07-03] MEDS ORDERED: SODIUM CHLORIDE 0.9% 1,000 ML IV STA (12:04)
--- NOTE | 2022-07-03 12:23 | ED Physician Documentation ---
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 This patient was admitted to the hospital on June 27 for sudden onset slurred speech difficulty with word finding. At that time CT angiogram of the head and neck and an MRI showed no acute findings. An echo as completed by her hospitalist also showed no obvious abnormalities. The patient was advised to begin taking a daily aspirin for stroke prevention. Patient did not discuss with his providers at at time that he drinks about 500 mL of liquor daily. Patient states that he abstain from alcohol for 48 hours but then began to have headache, light sensitivity and tremors and when he drank the symptoms improved. The patient was at the [facility] today doing follow-up when he discussed that he was having a headache and was tremulous and felt like he was having difficulty again with word finding. During that clinic visit they were able to assess out that the patient is a fairly large alcohol consumer. He will typically drink about half a liter of liquor daily. He has been doing this for about the last 18 months. Patient states he last drank at 9 PM last night. Review of Systems Constitutional: denies: Fever, Chills Eyes: reports: Reviewed and negative Nose: reports: Reviewed and negative Throat: reports: Reviewed and negative Cardiac: reports: Palpitations Respiratory: reports: Reviewed and negative GI: reports: Nausea Neurologic: reports: Difficulty speaking, Headache. denies: Focal weakness, Syncope, Seizure PD PAST MEDICAL HISTORY - Past Medical History Cardiovascular: None Respiratory: None Neuro: None Endocrine/Autoimmune: None GI: None : None HEENT: None Psych: None Musculoskeletal: None Derm: None - Past Surgical History Ortho: ACL reconstruction - Present Medications Home Medications: Ambulatory Orders Medication Instructions Recorded Confirmed Aspirin EC [Ecotrin] 81 mg PO DAILY #30 tablet 06/28/22 - Allergies Allergies/Adverse Reactions: Allergies Allergy/AdvReac Type Severity Reaction Status Date / Time No Known Drug Allergies Allergy Verified 07/03/22 12:26 - Social History Does the pt smoke?: No Smoking Status: Never smoker PD ED PE NORMAL - General General: Alert and oriented X 3, Well developed/nourished. No: No acute distress (Appears anxious) - HEENT HEENT: Atraumatic, Moist mucous membranes - Neck Neck: Supple, no meningeal sign - Cardiac Cardiac: RRR (Sinus tachycardia on the monitor. Heart rate of 130. 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 intact Eye Opening: Spontaneous Motor: Obeys Commands Verbal: Oriented GCS Score: 15 Results - Vitals Vitals: Vital Signs - 24 hr 07/03/22 12:17 Temperature 37.2 C Heart Rate 115 H Respiratory 16 Rate Blood Pressure 181/97 H O2 Saturation 97 Oxygen O2 Source Room air - Labs Labs: Laboratory Tests 07/03/22 07/03/22 07/03/22 12:47 12:47 12:47 WBC 6.5 RBC 5.40 Hgb 16.7 Hct 46.1 MCV 85.4 MCH 30.9 MCHC 36.2 H RDW 11.7 L Plt Count 200 MPV 9.8 Neut # (Auto) 4.8 Lymph # (Auto) 1.1 L Hendry # (Auto) 0.5 Eos # (Auto) 0.1 Baso # (Auto) 0.0 Absolute Nucleated RBC 0.00 Nucleated RBC % 0.0 PT 11.8 INR 1.0 Sodium 141 Potassium 3.6 Chloride 104 Carbon Dioxide 26 Anion Gap 11.0 BUN 14 Creatinine 0.8 Estimated GFR (MDRD) 112 Glucose 108 H Calcium 9.1 Total Bilirubin 0.8 AST 31 ALT 44 Alkaline Phosphatase 67 Ammonia Total Protein 7.6 Albumin 4.8 Globulin 2.8 Albumin/Globulin Ratio 1.7 Lipase 29 Ethyl Alcohol < 5.0 07/03/22 12:47 WBC RBC Hgb Hct MCV MCH MCHC RDW Plt Count MPV Neut # (Auto) Lymph # (Auto) Hendry # (Auto) Eos # (Auto) Baso # (Auto) Absolute Nucleated RBC Nucleated RBC % PT INR Sodium Potassium Chloride Carbon Dioxide Anion Gap BUN Creatinine Estimated GFR (MDRD) Glucose Calcium Total Bilirubin AST ALT Alkaline Phosphatase Ammonia 17.7 Total Protein Albumin Globulin Albumin/Globulin Ratio Lipase Ethyl Alcohol PD Medical Decision Making - ED course Complexity details: reviewed results, re-evaluated patient, considered differential, d/w patient ED course: 32-year-old male presents the emergency department for evaluation of headache, tremor, light sensitivity, nausea and concerns of alcohol withdrawal. Is seen in this emergency department on the for concerns of a TIA which included difficulty with word finding. CT angios of the head and neck as well as MRI of the brain were unremarkable. Patient did not admit to providers at that time how much he drank and his alcohol level was negative. He reported he went about 48 hours without drinking before developing severe headache and tremor as well as light sensitivity and nausea. He last drank about 9 PM last night and consumed about 500 mL of liquor. Here in the emergency department he presents with a CIWA of 10 that includes bilateral arm tremor, headache, nausea light sensitivity. He does not appear to have any hallucinations delirium. He was initially given 30 mg of phenobarbital and on reevaluation his CIWA is about 4. Patient was also administered IV thiamine and folate. Clinically he does not appear to have Warnicke's I did obtain a CBC, electrolytes ammonia level and alcohol level. They are all essentially unremarkable. However patient did present with moderate alcohol withdrawal. I briefly discussed this case with Dr. Sadler our hospitalist who agrees to bring the patient in under an observation status for alcohol withdrawal. I do not believe he will require ICU during this stay. I have discussed the plan with the patient and his and both are amenable to further care and evaluation here at [facility]. Departure - Departure Disposition: ED Place in Observation Clinical Impression: Alcohol withdrawal Qualifiers: Complication of substance-induced condition: uncomplicated Qualified Code(s): F10.930 - Alcohol use, unspecified with withdrawal, uncomplicated Instructions: ED Withdrawal Alcohol
[2022-07-03] MEDS ORDERED: PHENobarbitaL 32.4 MG TABLET PO STA (12:25)
[2022-07-03 12:54] LABS: BASOPHILS % (AUTO) 0.3 %; EOSINOPHILS # (AUTO) 0.1 10^3/uL (0.0-0.7); EOSINOPHILS % (AUTO) 0.8 %; HCT - HEMATOCRIT 46.1 % (42.0-52.0); HGB - HEMOGLOBIN 16.7 g/dL (14.0-18.0); LYMPHOCYTES # (AUTO) 1.1 10^3/uL (1.5-3.5); MEAN CORPUSCULAR HEMOGLOBIN 30.9 pg (27.0-31.0); MEAN CORPUSCULAR HGB CONC 36.2 g/dL (32.0-36.0); MEAN CORPUSCULAR VOLUME 85.4 fL (80.0-94.0); MEAN PLATELET VOLUME 9.8 fL (7.4-11.4); MONOCYTES # (AUTO) 0.5 10^3/uL (0.0-1.0); MONOCYTES % (AUTO) 7.7 %; NEUTROPHILS # (AUTO) 4.8 10^3/uL (1.5-6.6); NEUTROPHILS % (AUTO) 73.9 %; PLT - PLATELET COUNT 200 10^3/uL (130-450); RED CELL DISTRIBUTION WIDTH 11.7 % (12.0-15.0); WHITE BLOOD COUNT 6.5 x10^3/uL (4.8-10.8)
[2022-07-03] MEDS: FOLIC ACID INJ 1 MG in SODIUM CHLORIDE 0.9% 1,000 ML IV STA ×2 (12:56→18:20)
[2022-07-03 12:59] LABS: PT - PROTHROMBIN TIME 11.8 secs (9.9-12.6)
[2022-07-03 13:07] LABS: ALBUMIN 4.8 g/dL (3.2-5.5); ALBUMIN/GLOBULIN RATIO 1.7 (1.0-2.2); ALKALINE PHOSPHATASE 67 IU/L (42-121); ALT ALANINE AMINOTRANSFERASE 44 IU/L (10-60); AST ASPARTATE AMINOTRANSFERASE 31 IU/L (10-42); BILIRUBIN,TOTAL 0.8 mg/dL (0.2-1.0); BUN - BLOOD UREA NITROGEN 14 mg/dL (6-20); CALCIUM 9.1 mg/dL (8.5-10.3); CARBON DIOXIDE - CO2 26 mmol/L (21-32); CHLORIDE 104 mmol/L (101-111); CREATININE 0.8 mg/dL (0.6-1.2); ETOH - ETHANOL < 5.0 mg/dL; GFR - MDRD 112 (>89); GLUCOSE 108 mg/dL (70-100); LIPASE 29 U/L (22-51); POTASSIUM 3.6 mmol/L (3.5-5.0); SODIUM 141 mmol/L (135-145); TOTAL PROTEIN 7.6 g/dL (6.7-8.2)
[2022-07-03] MEDS ORDERED: ONDANSETRON 4 MG/2 ML VIAL IVP PRN (14:22)
[2022-07-03] MEDS ORDERED: ACETAMINOPHEN 325 MG TABLET PO PRN (14:22)
[2022-07-03] MEDS ORDERED: LORazepam 2 MG/ML VIAL IVP PRN (14:24)
--- NOTE | 2022-07-03 14:40 | HISTORY & PHYSICAL EXAMINATION ---
Chief Complaint - Chief Complaint Chief Complaint: Tremulous History of Present Illness - Admitted From Admitted From:: ED - History Obtained From History obtained from: ED provider and the patient - History of Present Illness HPI Comment/Other: This is a 32-year-old male who was just discharged from here by me 3 days ago. 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 The day that he got to [place] he experienced dizziness, tingling of part of his body and had evaluation here for stroke-like symptoms that resolved after 12 hours. It was felt that he had a TIA with a negative head CT and negative brain MRI and normal Echo. He was discharged and advised to take 1 baby aspirin daily for stroke prophylaxis and to be seen by a Neurologist. We learned that he uses high amounts of nicotine via dipping and drinks many high caffeinated energy drinks daily, and was told to stop doing those. His alcohol intake he reported was 1-2 drinks per day. The patient says he stopped drinking after discharge for about 48 hours and started to get tremulous and had trouble with words once again but when he resumed drinking those symptoms went away. [place] felt that he was going through alcohol withdrawal and sent him to our ER. On presentation here he was tachycardic with heart rate 109 and mildly hypertensive. He was tremulous and a first CIWA score was 10.The patient was given Thiamine, IV FOlate and iv Ativan and a repeat CIWA score was 4. It was then learned that the patient drinks about half a liter of whiskey per day for the past 18 months. The at bedside did not know that he was taking this high amount of alcohol, per the ED provider's note. The ED provider reached out to me and we discussed this patient. He will be placed in Observation status to manage him going through alcohol withdrawal. He agrees to stay and is remorseful. As I am seeing him in a hospital bed, he is scoring a CIWA score of 17. He has nystagmus, he is hyperactive, pulling at his bedsheets, rolling from side to side in bed, trying to climb out of bed, and does not know where he is. I have ordered him to get IV Ativan 2 mg, with repeat every 15 minutes as needed based on CIWA score. The repeat iv Ativan 2 mg was given in 15 minutes and he is still scoring a very high CIWA score of 16-20. The plan will now be to admit him to Inpatient status for alcohol withdrawal with delirium, transfer him to the ICU, use high-dose ICU protocol Ativan, with as much is 20 mg per dose, and CIWA score monitoring. History - Past Medical History Cardiovascular: reports: None Respiratory: reports: None Neuro: reports: None Endocrine/Autoimmune: reports: None GI: reports: None : reports: None HEENT: reports: None Psych: reports: None Musculoskeletal: reports: None Derm: reports: None MRSA Hx?: No - Past Surgical History Ortho: reports: ACL reconstruction - Family & Social History Living arrangement: At home Living Situation: With spouse/s.o. Social History Notes: He dips tobacco pouches, uses high-caffeine energy drinks and now we know that he drinks 1/2 L of hard whiskey daily. Meds/Allgy - Home Medications Home Medications: Ambulatory Orders Medication Instructions Recorded Confirmed Aspirin EC [Ecotrin] 81 mg PO DAILY #30 tablet 06/28/22 - Allergies Allergies/Adverse Reactions: Allergies Allergy/AdvReac Type Severity Reaction Status Date / Time No Known Drug Allergies Allergy Verified 07/03/22 12:26 Review of Systems - All Other Systems All Other Systems: reports: Other (He cannot give details since he is in delirium. Much of his recent sx and past history are known from him just being discharged 3 days ago from here.) Exam - Vital Signs Vital Signs: Vital Signs x48h Temp Pulse Resp BP Pulse Ox 07/03/22 14:31 37.3 C 07/03/22 14:02 109 H 20 154/90 H 95 07/03/22 12:17 37.2 C 115 H 16 181/97 H 97 - Physical Exam General Appearance: positive: Severe distress (He is only oriented to self, he is able to communicate in short sentences. He admitted that he does not know where he is or the time. He is rolling from side to side, picking at bed sheets, trying to climb out of bed.) Eyes Bilateral: positive: Other (Injected sclera, bilateral) ENT: positive: Dry mucous membranes Neck: positive: Nml inspection, No JVD Respiratory: positive: No respiratory distress Cardiovascular: positive: Tachycardia Skin: positive: Diaphoresis Neurologic/Psychiatric: positive: Disoriented to place, Disoriented to time, Other (Has nystagmus, tremor of hands and arms, is hyperactive, rolling from side to side in bed and trying to climb out) Conclusion/Plan - Problem List (1) Alcohol withdrawal with delirium Conclusion/Plan: Patient had stopped drinking after he was discharged from here 3 days ago, took no alcohol for 48 hours, by ED report, then started to get "tremulous and had trouble speaking". He restarted drinking and the symptoms disappeared. Today at the [facility] he was felt to be in alcohol withdrawal with tremors, was sent to our ER. When he was here 4 and 5 days ago, he reported that he drinks 1-2 mixed drinks per day. Today in the ER, he reported that he drinks a half a liter of hard whiskey daily for the last 18-months Plan: Admit to the ICU given his very high CIWA scores with delirium. Will monitor serum CK for possible rhabdomyelysis. Start p.o. Librium scheduled every 6 hours Continue with CIWA protocol giving high-dose, ICU-protocol IV Ativan Continue with Thiamine daily either p.o. or IV Continue with a multivitamin daily p.o. (there is currently no IV multivitamin available in our pharmacy and across the country) Give IV fluids He will need to be n.p.o. except for ice chips, cancel the regular diet Monitor his CMP daily, he will be on ICU electrolyte protocol (2) Alcohol abuse Conclusion/Plan: The updated history shows that he has very heavy alcohol intake He has low platelets which are seen in alcohol abuse patients. His INR is normal and so are his LFTs today. Plan: As in #1, give thiamine, multivitamins daily Follow LFTs daily, and serum ammonia level intermittent. Would start lactulose if necessary We will order social work consult, once he is no longer delirious, to discuss resources to stop alcohol abuse (3) History of TIA (transient ischemic attack) Conclusion/Plan: Recently he had "ataxia" when trying to write but also had dizziness, migraine headache, numbness of one side of his body. The symptoms abated in [address] and MRI were negative as well as echo Plan: Continue with his baby aspirin daily We will start Pepcid IV twice daily for stress ulcer prophylaxis - Lab Results Fish Bones: 07/04/22 04:32 07/04/22 04:32 - Diagnostic Imaging Results Diagnostic Imaging Results: positive: Final report reviewed - Other Other Results/Comments: Attestation: The patient is expected to be discharged or transferred to another facility within 96 hours: Yes
[2022-07-03 14:46] LABS: MUDS CUTOFF CONCENTRATIONS CUTOFF CONC BELOW:
[2022-07-03 15:07] LABS: AMPHETAMINE SCREEN,URINE NEGATIVE (NEGATIVE); BARBITURATE SCREEN,UR NEGATIVE (NEGATIVE); BENZODIAZEPINES SCREEN, URINE NEGATIVE (NEGATIVE); COCAINE SCREEN URINE NEGATIVE (NEGATIVE); METHADONE SCREEN, URINE NEGATIVE (NEGATIVE); METHAMPHETAMINES SCREEN, URINE NEGATIVE (NEGATIVE); OPIATE SCREEN, URINE NEGATIVE (NEGATIVE); OXYCODONE SCREEN, URINE NEGATIVE (NEGATIVE); PROPOXYPHENE SCREEN, URINE NEGATIVE (NEGATIVE); THC CANNABINOID SCREEN, URINE NEGATIVE (NEGATIVE); TRICYCLIC ANTIDEPRESSANT,URINE NEGATIVE (NEGATIVE)
[2022-07-03] MEDS ORDERED: SODIUM CHLORIDE 0.9% 1,000 ML IV SCH (16:00)
[2022-07-03] MEDS: LORazepam 2 MG/ML VIAL IVP PRN ×15 (16:13→21:28)
[2022-07-03] MEDS: SODIUM CHLORIDE FLUSH 0.9% 10 ML SYRINGE IVP SCH (16:18)
[2022-07-03] MEDS: chlordiazePOXIDE 5 MG CAPSULE PO SCH ×2 (16:48→23:04)
[2022-07-03] MEDS ORDERED: SODIUM CHLORIDE FLUSH 0.9% 10 ML SYRINGE IVP PRN (17:14)
[2022-07-03] MEDS ORDERED: PROCHLORPERAZINE 10 MG/2 ML VIAL IVP PRN (17:14)
[2022-07-03] MEDS ORDERED: ACETAMINOPHEN 1,000 MG/100 ML 1,000 MG/100 ML BAG IV PRN (17:17)
[2022-07-03] MEDS ORDERED: chlordiazePOXIDE 5 MG CAPSULE PO SCH (18:00)
[2022-07-03] MEDS: FAMOTIDINE 20 MG/2 ML VIAL IVP SCH (20:51)
[2022-07-04] MEDS ORDERED: SODIUM CHLORIDE FLUSH 0.9% 10 ML SYRINGE IVP SCH (01:00)
[2022-07-04 04:46] LABS: BASOPHILS % (AUTO) 0.3 %; EOSINOPHILS % (AUTO) 0.5 %; HGB - HEMOGLOBIN 14.3 g/dL (14.0-18.0); LYMPHOCYTES # (AUTO) 1.8 10^3/uL (1.5-3.5); LYMPHOCYTES % (AUTO) 24.8 %; MEAN CORPUSCULAR HGB CONC 35.8 g/dL (32.0-36.0); MEAN CORPUSCULAR VOLUME 86.6 fL (80.0-94.0); MEAN PLATELET VOLUME 9.6 fL (7.4-11.4); MONOCYTES # (AUTO) 0.8 10^3/uL (0.0-1.0); MONOCYTES % (AUTO) 10.8 %; NEUTROPHILS # (AUTO) 4.7 10^3/uL (1.5-6.6); NEUTROPHILS % (AUTO) 63.3 %; PLT - PLATELET COUNT 208 10^3/uL (130-450); RED BLOOD COUNT 4.62 10^6/uL (4.70-6.10); RED CELL DISTRIBUTION WIDTH 11.7 % (12.0-15.0); WHITE BLOOD COUNT 7.4 x10^3/uL (4.8-10.8)
[2022-07-04 05:02] LABS: ALBUMIN 3.8 g/dL (3.2-5.5); ALBUMIN/GLOBULIN RATIO 1.5 (1.0-2.2); BILIRUBIN,TOTAL 1.3 mg/dL (0.2-1.0); CALCIUM 8.5 mg/dL (8.5-10.3); CREATININE 0.8 mg/dL (0.6-1.2); MAGNESIUM 1.9 mg/dL (1.7-2.8); PHOSPHORUS 3.5 mg/dL (2.5-4.6); POTASSIUM 3.6 mmol/L (3.5-5.0); TOTAL PROTEIN 6.3 g/dL (6.7-8.2)
[2022-07-04] MEDS: chlordiazePOXIDE 5 MG CAPSULE PO SCH ×4 (05:30→19:33)
[2022-07-04] MEDS: SODIUM CHLORIDE FLUSH 0.9% 10 ML SYRINGE IVP SCH ×3 (05:31→16:40)
[2022-07-04] MEDS ORDERED: POTASSIUM CHLORIDE 20 MEQ TABLET PO ONE (05:32)
[2022-07-04] MEDS: ASPIRIN EC 81 MG TABLET PO SCH (08:21)
[2022-07-04] MEDS: THIAMINE 100 MG TABLET PO SCH (08:21)
[2022-07-04] MEDS: PRENATAL VITAMIN TABLET PO SCH (08:21)
[2022-07-04] MEDS: FAMOTIDINE 20 MG/2 ML VIAL IVP SCH ×2 (08:30→20:44)
[2022-07-04] MEDS: SODIUM CHLORIDE FLUSH 0.9% 10 ML SYRINGE IVP PRN ×4 (08:39→20:46)
--- NOTE | 2022-07-04 09:19 | PROVIDER PROGRESS NOTE ---
Subjective - Subjective Pt reports feeling: Improved (He says he cannot remember much of yesterday only bits and pieces. As he is speaking to me he is sedated, eyes are half closed, there is still nystagmus but he has no tremor) Objective - Vital Signs/Intake & Output Vital Signs: Vital Signs Temp Pulse Resp BP Pulse Ox 07/04/22 08:00 37.3 C 82 23 136/88 H 97 07/04/22 07:03 61 19 137/91 H 07/04/22 07:00 69 18 137/91 H 07/04/22 06:00 37.0 C 16 126/81 H 93 Intake & Output: Intake & Output 07/01/22 07/02/22 07/03/22 07/04/22 23:59 23:59 23:59 23:59 Intake Total 0303.388 3176.2 Output Total 0 750 Balance 1542.667 403.2 - Objective General Appearance: positive: Lethargic Eyes Bilateral: positive: Other (He has nystagmus, no icterus) ENT: positive: Dry mucous membranes Neck: positive: Nml inspection, No JVD Respiratory: positive: No respiratory distress Cardiovascular: positive: Regular rate & rhythm Rectal: positive: Non-tender Skin: positive: Warm, Dry Extremities: positive: Non-tender, No pedal edema Neurologic/Psychiatric: positive: Oriented x3, Other (Lethargic. Has nystagmus. RN reported he was ataxic when he stood up) - Lab Results Fish Bones: 07/04/22 04:32 07/04/22 04:32 Other Labs: Lab Results x24hrs 07/04/22 07/04/22 07/03/22 Range/Units 04:32 04:32 18:00 WBC 7.4 (4.8-10.8) x10^3/uL RBC 4.62 L (4.70-6.10) 10^6/uL Hgb 14.3 (14.0-18.0) g/dL Hct 40.0 L (42.0-52.0) % MCV 86.6 (80.0-94.0) fL MCH 31.0 (27.0-31.0) pg MCHC 35.8 (32.0-36.0) g/dL RDW 11.7 L (12.0-15.0) % Plt Count 208 (130-450) 10^3/uL MPV 9.6 (7.4-11.4) fL Neut # (Auto) 4.7 (1.5-6.6) 10^3/uL Lymph # (Auto) 1.8 (1.5-3.5) 10^3/uL Piatt # (Auto) 0.8 (0.0-1.0) 10^3/uL Eos # (Auto) 0.0 (0.0-0.7) 10^3/uL Baso # (Auto) 0.0 (0.0-0.1) 10^3/uL Absolute Nucleated RBC 0.00 x10^3/uL Nucleated RBC % 0.0 /100WBC PT (9.9-12.6) secs INR (0.8-1.2) Sodium 140 (135-145) mmol/L Potassium 3.6 (3.5-5.0) mmol/L Chloride 106 (101-111) mmol/L Carbon Dioxide 26 (21-32) mmol/L Anion Gap 8.0 (6-13) BUN 11 (6-20) mg/dL Creatinine 0.8 (0.6-1.2) mg/dL Estimated GFR (MDRD) 112 (>89) Glucose 104 H (70-100) mg/dL Calcium 8.5 (8.5-10.3) mg/dL Phosphorus 3.5 (2.5-4.6) mg/dL Magnesium 1.9 (1.7-2.8) mg/dL Total Bilirubin 1.3 H (0.2-1.0) mg/dL AST 21 (10-42) IU/L ALT 30 (10-60) IU/L Alkaline Phosphatase 58 (42-121) IU/L Ammonia (7-35) umol/L Total Protein 6.3 L (6.7-8.2) g/dL Albumin 3.8 (3.2-5.5) g/dL Globulin 2.5 (2.1-4.2) g/dL Albumin/Globulin Ratio 1.5 (1.0-2.2) Lipase (22-51) U/L Nasal Screen MRSA (PCR) NEGATIVE (NEGATIVE) Urine Opiates Screen (NEGATIVE) Ur Oxycodone Screen (NEGATIVE) Urine Methadone Screen (NEGATIVE) Ur Propoxyphene Screen (NEGATIVE) Ur Barbiturates Screen (NEGATIVE) Ur Tricyclics Screen (NEGATIVE) Ur Phencyclidine Scrn (NEGATIVE) Ur Amphetamine Screen (NEGATIVE) U Methamphetamines Scrn (NEGATIVE) U Benzodiazepines Scrn (NEGATIVE) Urine Cocaine Screen (NEGATIVE) U Cannabinoids Screen (NEGATIVE) Ethyl Alcohol mg/dL 07/03/22 07/03/22 07/03/22 Range/Units 13:12 12:47 12:47 WBC (4.8-10.8) x10^3/uL RBC (4.70-6.10) 10^6/uL Hgb (14.0-18.0) g/dL Hct (42.0-52.0) % MCV (80.0-94.0) fL MCH (27.0-31.0) pg MCHC (32.0-36.0) g/dL RDW (12.0-15.0) % Plt Count (130-450) 10^3/uL MPV (7.4-11.4) fL Neut # (Auto) (1.5-6.6) 10^3/uL Lymph # (Auto) (1.5-3.5) 10^3/uL Piatt # (Auto) (0.0-1.0) 10^3/uL Eos # (Auto) (0.0-0.7) 10^3/uL Baso # (Auto) (0.0-0.1) 10^3/uL Absolute Nucleated RBC x10^3/uL Nucleated RBC % /100WBC PT (9.9-12.6) secs INR (0.8-1.2) Sodium 141 (135-145) mmol/L Potassium 3.6 (3.5-5.0) mmol/L Chloride 104 (101-111) mmol/L Carbon Dioxide 26 (21-32) mmol/L Anion Gap 11.0 (6-13) BUN 14 (6-20) mg/dL Creatinine 0.8 (0.6-1.2) mg/dL Estimated GFR (MDRD) 112 (>89) Glucose 108 H (70-100) mg/dL Calcium 9.1 (8.5-10.3) mg/dL Phosphorus (2.5-4.6) mg/dL Magnesium (1.7-2.8) mg/dL Total Bilirubin 0.8 (0.2-1.0) mg/dL AST 31 (10-42) IU/L ALT 44 (10-60) IU/L Alkaline Phosphatase 67 (42-121) IU/L Ammonia 17.7 (7-35) umol/L Total Protein 7.6 (6.7-8.2) g/dL Albumin 4.8 (3.2-5.5) g/dL Globulin 2.8 (2.1-4.2) g/dL Albumin/Globulin Ratio 1.7 (1.0-2.2) Lipase 29 (22-51) U/L Nasal Screen MRSA (PCR) (NEGATIVE) Urine Opiates Screen NEGATIVE (NEGATIVE) Ur Oxycodone Screen NEGATIVE (NEGATIVE) Urine Methadone Screen NEGATIVE (NEGATIVE) Ur Propoxyphene Screen NEGATIVE (NEGATIVE) Ur Barbiturates Screen NEGATIVE (NEGATIVE) Ur Tricyclics Screen NEGATIVE (NEGATIVE) Ur Phencyclidine Scrn NEGATIVE (NEGATIVE) Ur Amphetamine Screen NEGATIVE (NEGATIVE) U Methamphetamines Scrn NEGATIVE (NEGATIVE) U Benzodiazepines Scrn NEGATIVE (NEGATIVE) Urine Cocaine Screen NEGATIVE (NEGATIVE) U Cannabinoids Screen NEGATIVE (NEGATIVE) Ethyl Alcohol < 5.0 mg/dL 07/03/22 07/03/22 Range/Units 12:47 12:47 WBC 6.5 (4.8-10.8) x10^3/uL RBC 5.40 (4.70-6.10) 10^6/uL Hgb 16.7 (14.0-18.0) g/dL Hct 46.1 (42.0-52.0) % MCV 85.4 (80.0-94.0) fL MCH 30.9 (27.0-31.0) pg MCHC 36.2 H (32.0-36.0) g/dL RDW 11.7 L (12.0-15.0) % Plt Count 200 (130-450) 10^3/uL MPV 9.8 (7.4-11.4) fL Neut # (Auto) 4.8 (1.5-6.6) 10^3/uL Lymph # (Auto) 1.1 L (1.5-3.5) 10^3/uL Piatt # (Auto) 0.5 (0.0-1.0) 10^3/uL Eos # (Auto) 0.1 (0.0-0.7) 10^3/uL Baso # (Auto) 0.0 (0.0-0.1) 10^3/uL Absolute Nucleated RBC 0.00 x10^3/uL Nucleated RBC % 0.0 /100WBC PT 11.8 (9.9-12.6) secs INR 1.0 (0.8-1.2) Sodium (135-145) mmol/L Potassium (3.5-5.0) mmol/L Chloride (101-111) mmol/L Carbon Dioxide (21-32) mmol/L Anion Gap (6-13) BUN (6-20) mg/dL Creatinine (0.6-1.2) mg/dL Estimated GFR (MDRD) (>89) Glucose (70-100) mg/dL Calcium (8.5-10.3) mg/dL Phosphorus (2.5-4.6) mg/dL Magnesium (1.7-2.8) mg/dL Total Bilirubin (0.2-1.0) mg/dL AST (10-42) IU/L ALT (10-60) IU/L Alkaline Phosphatase (42-121) IU/L Ammonia (7-35) umol/L Total Protein (6.7-8.2) g/dL Albumin (3.2-5.5) g/dL Globulin (2.1-4.2) g/dL Albumin/Globulin Ratio (1.0-2.2) Lipase (22-51) U/L Nasal Screen MRSA (PCR) (NEGATIVE) Urine Opiates Screen (NEGATIVE) Ur Oxycodone Screen (NEGATIVE) Urine Methadone Screen (NEGATIVE) Ur Propoxyphene Screen (NEGATIVE) Ur Barbiturates Screen (NEGATIVE) Ur Tricyclics Screen (NEGATIVE) Ur Phencyclidine Scrn (NEGATIVE) Ur Amphetamine Screen (NEGATIVE) U Methamphetamines Scrn (NEGATIVE) U Benzodiazepines Scrn (NEGATIVE) Urine Cocaine Screen (NEGATIVE) U Cannabinoids Screen (NEGATIVE) Ethyl Alcohol mg/dL Assessment/Plan - Problem List (1) Alcohol withdrawal with delirium Impression: Patient had stopped drinking after he was discharged from here 3 days ago, drank no alcohol for 48 hours, then got "tremulous and had trouble speaking". He restarted drinking and the symptoms disappeared, typical for alcohol withdrawal. On 07/03 at the [facility] he was felt to be in active alcohol withdrawal with tremors, and was sent to our ER. In the ED yesterday his CIWA score was 10 then 4, when he was placed in observation his CIWA score was 16-20 and he was admitted and put in the ICU. Overnight his CIWA score was as high as 24. This morning the CIWA score is 4. He is now sedated when speaking to me and can only remember bits and pieces of yesterday. The RN told me that he is very ataxic when he tried to get up to urinate Plan: Cont p.o. Librium scheduled every 6 hours Continue with CIWA protocol giving high-dose, ICU-protocol IV Ativan prn Continue with Thiamine daily either p.o. or IV Continue with a multivitamin daily p.o. (there is currently no IV multivitamin available in our pharmacy and across the country) Cont IV fluids We will start to advance his diet, pured and then more solid Monitor his CMP daily, and he will be on ICU electrolyte protocol Remain in the ICU today since he is needing the ICU-protocol IV Ativan at high- doses (2) Alcohol abuse Conclusion/Plan: When he was here at the last recent admission, he reported that he drinks 1-2 mixed drinks per day. This admission, in the ER he reported that he drinks a half a liter of hard whiskey daily for the last 18-months. All labs were reviewed. He had low platelets which are seen in alcohol abuse patients. His INR was normal and so were his LFTs. Today his bilirubin is slightly elevated at 1.3. The RN told me that he is very ataxic when he tried to get up to urinate Plan: As in #1, cont thiamine and multivitamins daily Follow LFTs daily, and serum ammonia level intermittent. Would start lactulose if necessary Will order PT evaluation regarding this ataxia We will order social work consult, once he is no longer delirious or sedated from Ativan treatment, to discuss resources to stop alcohol abuse (3) History of TIA (transient ischemic attack) Conclusion/Plan: At the last recent admission, he had "ataxia" when trying to write, and reported dizziness, and numbness of one side of his body. The symptoms abated in [address] and MRI were negative as well as Echo, so it was labelled a TIA. Possibly that episode was the beginning of alcohol withdrawal, and not a TIA. Plan: Continue Pepcid IV twice daily for stress ulcer prophylaxis, will change to po once he is taking a diet - Lab Results Fish Bones: 07/04/22 04:32
--- NOTE | 2022-07-04 12:21 | PHARMACY PROGRESS NOTE ---
- Best Possible Medication History Admit Date and Time: 07/03/22 1714 Processed by: Pharmacy Medication History completed: Yes Secondary Source(s): Physician records, Previous admit records As the person ultimately responsible for medication therapy, providers are able to order a medication from an existing home medication list in [facility] via the "Reconcile Routine" prior to Confirmation of that medication by clinical support tech. Such practice is discouraged except when the physician, in their clinical judgment, deems that a medical need exists for a medication without regard to previous use.
--- NOTE | 2022-07-04 13:57 | CT Report ---
PROCEDURE: CERVICAL SPINE WO INDICATIONS: Fall in his hospital room TECHNIQUE: Noncontrast 3 mm thick sections acquired from the skull base to the T4 level. Sagittal and coronal r eformats were then constructed. For radiation dose reduction, the following was used: automated exp osure control, adjustment of mA and/or kV according to patient size. COMPARISON: Correlation is made with the accompanying head CT, 07/04/2022. Correlation is also made w ith the recent neck CT angiogram, 06/27/2022. FINDINGS: Image quality: Excellent. Bones: No fractures or dislocations. Visualized superior ribs are intact. Soft tissues: Prevertebral soft tissues are normal in thickness. No paravertebral hematomas. No ap ical pneumothoraces. IMPRESSION: Negative for fracture Reviewed by: Srinivasa Shaw MD on 07/04/2022 12:56 PM AKDT Approved by: Srinivasa Shaw MD on 07/04/2022 12:56 PM AKKRISTEN Station ID: [id number]
--- NOTE | 2022-07-04 13:59 | CT Report ---
PROCEDURE: HEAD WO INDICATIONS: Fall in hospital room TECHNIQUE: Noncontrast 4.5 mm thick angled axial sections acquired from the foramen magnum to the vertex. For r adiation dose reduction, the following was used: automated exposure control, adjustment of mA and/or kV according to patient size. COMPARISON: Head CT angiogram, 06/27/2022. Correlation is also made with the accompanying cervical sp ine CT, 07/04/2022. FINDINGS: Image quality: Motion artifact is noted. Images were repeated, with some improvement. There is streak artifact seen through the skull base. CSF spaces: Basal cisterns are patent. No extra-axial fluid collections. Ventricles are normal in size and shape. Brain: No midline shift. No intracranial masses or hemorrhage. Coronel-white matter interface is norm al. Skull and face: Calvarium and visualized facial bones are intact, without suspicious lesions. Sinuses: Visualized sinuses and mastoids are clear. IMPRESSION: No intracranial hemorrhage is seen. No significant intracranial abnormality is seen. Reviewed by: Srinivasa Shaw MD on 07/04/2022 12:58 PM ITZ Approved by: Srinivasa Shaw MD on 07/04/2022 12:58 PM ITZ Station ID: [id number]
[2022-07-04] MEDS: LORazepam 2 MG/ML VIAL IVP PRN (14:11)
[2022-07-05] MEDS: chlordiazePOXIDE 5 MG CAPSULE PO SCH ×4 (01:08→21:52)
[2022-07-05] MEDS: SODIUM CHLORIDE FLUSH 0.9% 10 ML SYRINGE IVP SCH ×4 (01:08→20:49)
[2022-07-05 05:08] LABS: BASOPHILS % (AUTO) 0.4 %; EOSINOPHILS # (AUTO) 0.1 10^3/uL (0.0-0.7); HCT - HEMATOCRIT 44.5 % (42.0-52.0); HGB - HEMOGLOBIN 15.5 g/dL (14.0-18.0); LYMPHOCYTES # (AUTO) 1.8 10^3/uL (1.5-3.5); LYMPHOCYTES % (AUTO) 32.4 %; MEAN CORPUSCULAR HEMOGLOBIN 30.8 pg (27.0-31.0); MEAN CORPUSCULAR HGB CONC 34.8 g/dL (32.0-36.0); MEAN CORPUSCULAR VOLUME 88.3 fL (80.0-94.0); MEAN PLATELET VOLUME 9.9 fL (7.4-11.4); MONOCYTES # (AUTO) 0.6 10^3/uL (0.0-1.0); NEUTROPHILS # (AUTO) 2.9 10^3/uL (1.5-6.6); NEUTROPHILS % (AUTO) 53.8 %; PLT - PLATELET COUNT 206 10^3/uL (130-450); RED BLOOD COUNT 5.04 10^6/uL (4.70-6.10); RED CELL DISTRIBUTION WIDTH 11.7 % (12.0-15.0); WHITE BLOOD COUNT 5.4 x10^3/uL (4.8-10.8)
[2022-07-05 05:19] LABS: CALCIUM, IONIZED 1.13 mmol/L (1.15-1.33); VBG PH 7.42 (7.31-7.41)
[2022-07-05 05:21] LABS: ALBUMIN 3.9 g/dL (3.2-5.5); ALBUMIN/GLOBULIN RATIO 1.5 (1.0-2.2); CALCIUM 9.1 mg/dL (8.5-10.3); CREATININE 0.8 mg/dL (0.6-1.2); MAGNESIUM 2.2 mg/dL (1.7-2.8); PHOSPHORUS 3.2 mg/dL (2.5-4.6); POTASSIUM 3.9 mmol/L (3.5-5.0); TOTAL PROTEIN 6.5 g/dL (6.7-8.2)
[2022-07-05] MEDS ORDERED: LORazepam 2 MG/ML VIAL IVP PRN (07:45)
[2022-07-05] MEDS: ASPIRIN EC 81 MG TABLET PO SCH (08:01)
[2022-07-05] MEDS: FAMOTIDINE 20 MG TABLET PO SCH ×2 (08:02→20:48)
[2022-07-05] MEDS: PRENATAL VITAMIN TABLET PO SCH (08:02)
[2022-07-05] MEDS: THIAMINE 100 MG TABLET PO SCH (08:02)
--- NOTE | 2022-07-05 10:17 | PROVIDER PROGRESS NOTE ---
Subjective - Subjective Pt reports feeling: Improved (Movements are less bradykinetic) Objective - Vital Signs/Intake & Output Vital Signs: Vital Signs Temp Pulse Resp BP Pulse Ox 07/05/22 09:00 36.1 C L 87 16 123/93 H 98 07/05/22 07:00 58 L 14 120/81 H 96 Intake & Output: Intake & Output 07/02/22 07/03/22 07/04/22 07/05/22 23:59 23:59 23:59 23:59 Intake Total 4236.745 7301.2 780 Output Total 0 3575 625 Balance 1542.667 925.2 155 - Objective General Appearance: positive: No acute distress, Alert Eyes Bilateral: positive: Normal inspection, Other (No nystagmus, able to focus) ENT: positive: ENT inspection nml, No signs of dehydration Neck: positive: Nml inspection, No JVD Respiratory: positive: No respiratory distress Cardiovascular: positive: Regular rate & rhythm Abdomen: positive: Non-tender, No distention Skin: positive: Warm, Dry Extremities: positive: Non-tender, No pedal edema Neurologic/Psychiatric: positive: Oriented x3, Other (Still mildly bradykinetic. No nystagmus. No resting tremor) - Lab Results Fish Bones: 07/05/22 04:47 07/05/22 04:47 Other Labs: Lab Results x24hrs 07/05/22 07/05/22 07/05/22 Range/Units 04:47 04:47 04:47 WBC 5.4 (4.8-10.8) x10^3/uL RBC 5.04 (4.70-6.10) 10^6/uL Hgb 15.5 (14.0-18.0) g/dL Hct 44.5 (42.0-52.0) % MCV 88.3 (80.0-94.0) fL MCH 30.8 (27.0-31.0) pg MCHC 34.8 (32.0-36.0) g/dL RDW 11.7 L (12.0-15.0) % Plt Count 206 (130-450) 10^3/uL MPV 9.9 (7.4-11.4) fL Neut # (Auto) 2.9 (1.5-6.6) 10^3/uL Lymph # (Auto) 1.8 (1.5-3.5) 10^3/uL Alcorn # (Auto) 0.6 (0.0-1.0) 10^3/uL Eos # (Auto) 0.1 (0.0-0.7) 10^3/uL Baso # (Auto) 0.0 (0.0-0.1) 10^3/uL Absolute Nucleated RBC 0.00 x10^3/uL Nucleated RBC % 0.0 /100WBC VBG pH 7.420 H (7.31-7.41) Ionized Calcium 1.13 L (1.15-1.33) mmol/L Sodium 143 (135-145) mmol/L Potassium 3.9 (3.5-5.0) mmol/L Chloride 108 (101-111) mmol/L Carbon Dioxide 28 (21-32) mmol/L Anion Gap 7.0 (6-13) BUN 12 (6-20) mg/dL Creatinine 0.8 (0.6-1.2) mg/dL Estimated GFR (MDRD) 112 (>89) Glucose 101 H (70-100) mg/dL Calcium 9.1 (8.5-10.3) mg/dL Phosphorus 3.2 (2.5-4.6) mg/dL Magnesium 2.2 (1.7-2.8) mg/dL Total Bilirubin 1.0 (0.2-1.0) mg/dL AST 21 (10-42) IU/L ALT 32 (10-60) IU/L Alkaline Phosphatase 52 (42-121) IU/L Total Protein 6.5 L (6.7-8.2) g/dL Albumin 3.9 (3.2-5.5) g/dL Globulin 2.6 (2.1-4.2) g/dL Albumin/Globulin Ratio 1.5 (1.0-2.2) Assessment/Plan - Problem List (1) Alcohol withdrawal with delirium Impression: Patient had stopped drinking after he was discharged from here 3 days ago, drank no alcohol for 48 hours, then got "tremulous and had trouble speaking". He restarted drinking and the symptoms disappeared, typical for alcohol withdrawal. On 07/03 at the [facility] he was felt to be in active alcohol withdrawal with tremors, and was sent to our ER. In the ED yesterday his CIWA score was 10 then 4, when he was placed in observation his CIWA score was 16-20 and he was admitted and put in the ICU. The first night his CIWA score was as high as 24. Yesterday his CIWA score was 4. He got much less Ativan over the last 24 hours and is on scheduled Librium 10 mg qid. he is less sedated when speaking to me today and can remember events of yesterday. The RN told me that he is much less ataxic when he gotOOB to chair for meal. His oiv fluids were stopped yesterday when he started to take a diet and oral hydration well Plan: Will begin a taper to off of the p.o. Librium scheduled, from QID to TID Continue with CIWA protocol. Will change back down to lower amounts of IV Ativan prn Continue with Thiamine daily p.o. Continue with a multivitamin daily p.o. Transfer out of the ICU today I updated his , at the bedside today (2) Alcohol abuse Conclusion/Plan: When he was here at the last recent admission, he reported that he drinks 1-2 mixed drinks per day. This admission, in the ER he reported that he drinks a half a liter of hard whiskey daily for the last 18-months. All labs were reviewed. He had low platelets which are seen in alcohol abuse p atients. His INR was normal and so were his LFTs. Today his bilirubin is slightly elevated at 1.3. The RN told me that he is very ataxic when he tried to get up to urinate Plan: As in #1, cont thiamine and multivitamins daily Follow LFTs and serum ammonia level intermittent. Would start lactulose if necessary Continue working with PT, and there is no PT here today, on a Wednesday We will order social work consult, once he is no longer sedated (from Librium plus Ativan treatment), to discuss resources to stop alcohol abuse (3) History of TIA (transient ischemic attack) Conclusion/Plan: At the last recent admission, he had "ataxia" when trying to use a pen, and reported dizziness, and numbness of one side of his body. The symptoms abated in [address] and MRI were negative as well as Echo, so it was labelled a TIA. Possibly that episode was the beginning of alcohol withdrawal, and not a TIA. Plan: Continue the baby ECASA daily Continue Pepcid twice daily for stress ulcer prophylaxis, and will change to po form When he was here for the presumed TIA, he disclosed that he drinks a lot of high-caffeine energy drinks. He is wanting caffeine now. We will allow 2 caffeine drinks per day maximum (4) Fall during this hospitalization Patient was seen by physical therapist on 07/04, she reported to me that he had marked ataxia, lateral propulsion when upright and trying to walk About an hour later the RN told me that the patient stood up from his chair and fell against the bathroom door striking his head. I examined the patient, and there were no gross neurodeficits. He was confused in his orientation though (inaccurately said the date). He was put in a c-collar and a STAT CT of head and C-spine were done. These showed no freature or hemorrhage Plan Will start to allow out of bed to chair only today, no walking. Continue working with PT, and there is no PT here today, on a Wednesday
[2022-07-06 05:57] LABS: CALCIUM, IONIZED 1.16 mmol/L (1.15-1.33); VBG PH 7.395 (7.31-7.41)
[2022-07-06 05:58] LABS: ALBUMIN/GLOBULIN RATIO 1.4 (1.0-2.2); BILIRUBIN,TOTAL 1.1 mg/dL (0.2-1.0); CALCIUM 9.1 mg/dL (8.5-10.3); CREATININE 0.9 mg/dL (0.6-1.2); POTASSIUM 3.7 mmol/L (3.5-5.0); TOTAL PROTEIN 6.8 g/dL (6.7-8.2)
[2022-07-06] MEDS: chlordiazePOXIDE 5 MG CAPSULE PO SCH (06:35)
[2022-07-06] MEDS: FAMOTIDINE 20 MG TABLET PO SCH (08:40)
[2022-07-06] MEDS: PRENATAL VITAMIN TABLET PO SCH (08:40)
[2022-07-06] MEDS: THIAMINE 100 MG TABLET PO SCH (08:40)
[2022-07-06] MEDS: ASPIRIN EC 81 MG TABLET PO SCH (08:40)
[2022-07-06] MEDS: SODIUM CHLORIDE FLUSH 0.9% 10 ML SYRINGE IVP SCH (08:43)
[2022-07-06 09:35] VITALS: BP 111/60
--- NOTE | 2022-07-06 10:52 | Discharge Plan ---
Discharge Plan Problem Reviewed?: Yes Disposition: Home, Self Care Condition: Stable Prescriptions: Pnv No.121/Iron/Folic Acid [ Multivitamin Tablet] 1 each PO DAILY #100 tablet Diet: Regular Activity Restrictions: Activity as Tolerated Shower Restrictions: No Driving Restrictions: No Instruction Topics: ED Withdrawal Alcohol, Abuse Alcohol [employer], Addiction Alcohol, Addiction Tx Options Health Concerns: You had been recently admitted with strokelike symptoms and were discharged after work-up. At that time we did not realize that you are a heavy alcohol abuser and that has come to light. You had gone home after that admission and you had stopped alcohol for 2 days. You went into alcohol withdrawal with delirium and have now returned to the hospital. You required high dose tranquilizers to keep you sedated and to keep you comfortable through severe withdrawal. You are now on the other side of this, and are stable. You no longer have high blood pressure, fast heart rate, sweats. Your sensorium is alert, oriented. Plan of Treatment: Please follow-up with your clinic at the [facility]. They have already been notified that you were here. The liaison for the clinics is named Ale. Ale knows that the clinic needs to call you and make a follow-up appointment to start the next process of counseling. We would recommend rehab for alcohol abuse. You do not have to wait for Ale to call you, you can call them. We would also ask you to start a vitamin. With alcohol abuse, your body does not use the B vitamins appropriately. Alcohol causes you not to use the B vitamins well. As such we ask you to take a vitamin, made for women, because it is loaded with B vitamins. Your will also need help as you go through this process. The first suggestion is Fleet and family. However the social work department has reached out to her and given her other options for help for herself. Care Goals: To be clean and sober for the rest of your life Assessment: Patient is alert, oriented, comfortable. is at the bedside. No signs or symptoms of withdrawal. 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 This may include inpatient rehab No Smoking: If you smoke, Please STOP! Call for help.
--- NOTE | 2022-07-06 11:33 | DISCHARGE SUMMARY ---
Discharge Summary Admit Date: 07/03/22 Discharge Date: 07/06/22 Discharging Provider: Susan Lance MD Primary Care Provider: [facility] Code Status: Attempt Resuscitation Condition at Discharge: Stable Discharge Disposition: 01 Home, Self Care - DIAGNOSES Discharge Diagnoses with Status of Each Condition: 1. Alcohol withdrawal with delirium 2. Alcohol abuse 3. History of strokelike symptoms 4. Fall during this hospitalization - HPI History of Present Illness: This is a 32-year-old male who was just discharged from here by me 3 days ago. 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 The day that he got to [place] he experienced dizziness, tingling of part of his body and had evaluation here for stroke-like symptoms that resolved after 12 hours. It was felt that he had a TIA with a negative head CT and negative brain MRI and normal Echo. He was discharged and advised to take 1 baby aspirin daily for stroke prophylaxis and to be seen by a Neurologist. We learned that he uses high amounts of nicotine via dipping and drinks many high caffeinated energy drinks daily, and was told to stop doing those. His alcohol intake he reported was 1-2 drinks per day. The patient says he stopped drinking after discharge for about 48 hours and started to get tremulous and had trouble with words once again but when he resumed drinking those symptoms went away. [place] and they felt that he was going through alcohol withdrawal and sent him to our ER. On presentation here he was tachycardic with heart rate 109 and mildly hypertensive. He was tremulous and a first CIWA score was 10.The patient was given Thiamine, IV FOlate and iv Ativan and a repeat CIWA score was 4. It was then learned that the patient drinks about half a liter of whiskey per day for the past 18 months. The at bedside did not know that he was taking this high amount of alcohol, per the ED provider's note. The ED provider reached out to me and we discussed this patient. He will be placed in Observation status to manage him going through alcohol withdrawal. He agrees to stay and is remorseful. As I am seeing him in a hospital bed, he is scoring a CIWA score of 17. He has nystagmus, he is hyperactive, pulling at his bedsheets, rolling from side to side in bed, trying to climb out of bed, and does not know where he is. I have ordered him to get IV Ativan 2 mg, with repeat every 15 minutes as needed based on CIWA score. The repeat iv Ativan 2 mg was given in 15 minutes and he is still scoring a very high CIWA score of 16-20. The plan will now be to admit him to Inpatient status for alcohol withdrawal with delirium, transfer him to [facility] ICU, use high-dose ICU protocol Ativan, with as much is 20 mg per dose, and CIWA score monitoring. - Past Medical History Cardiovascular: reports: None Respiratory: reports: None Neuro: reports: None Endocrine/Autoimmune: reports: None GI: reports: None : reports: None HEENT: reports: None Psych: reports: None Musculoskeletal: reports: None Derm: reports: None MRSA Hx?: No - Past Surgical History Ortho: reports: ACL reconstruction - CONSULTS | PROCEDURES Procedures: C-spine CAT scan negative for fracture Head CT without contrast does not show intracranial hemorrhage. No significant intracranial abnormality seen. - HOSPITAL COURSE Hospital Course: (1) Alcohol withdrawal with delirium Impression: In the ED his CIWA score was 17 then 10 then 4 and then he was placed in observation.However his CIWA score lyle to 16-20 and he was admitted and put in the ICU. The first night in ICU his CIWA score was as high as 24. By 07/04 in the evening, his CIWA score was 4. He recieved less and less Ativan over the next 24 hours and was on scheduled Librium 10 mg qid. He was less sedated when speaking to us on 07/05, and starting to remember events. He was much less ataxic on the when he got out of bed to a chair for a meal. IV fluids were stopped when he was starting to take a diet and drink enough oral fluids to maintain himself. As such we tapered off the p.o. Librium and he went from 4 times daily to 3 times daily. On the day of discharge he is not received any Ativan for over 48 hours. He is only on Librium 10 mg. But has no tremors, tachycardia, diaphoresis. Blood pressure stable. Both he and his feel that he is stable to be discharged safely. (2) Alcohol abuse Conclusion/Plan: When he was here at the last recent admission, he reported that he drinks 1-2 mixed drinks per day. This admission, in the ER he reported that he drinks a half a liter of hard whiskey daily for the last 18-months. Sequela of alcohol abuse include mild thrombocytopenia. But INR and LFTs are normal. Bili was slightly elevated at 1.3. He was placed on thiamine, and multivitamin daily. He was able to be seen by social work. [employer] is aware of the problem. He is active duty [employer]. Plans are for him to be seen in follow-up by the clinic. He will then be referred for rehab. I have asked him to continue a vitamin on a daily basis, and thiamine 100 mg daily. (3) History of TIA (transient ischemic attack) Conclusion/Plan: At the last recent admission, he had "ataxia" when trying to use a pen, and reported dizziness, and numbness of one side of his body. The symptoms abated in [address] and MRI were negative as well as Echo, so it was labelled a TIA. Possibly that episode was the beginning of alcohol withdrawal, and not a TIA. We are continuing a baby aspirin daily. And he is to continue Pepcid twice daily for stress ulcer prophylaxis. He was drinking quite a bit of high caffeine energy drinks and we asked him to stop those. However he still has quite a bit of caffeine cravings. We would recommend no more than 2 drinks of coffee a day. Or 2 caffeine drinks a day. (4) Fall during this hospitalization Patient was seen by physical therapist on 07/04, she reported that he had marked ataxia, lateral propulsion when upright and trying to walk About an hour later , the RN noted that the patient stood up from his chair and fell against the bathroom door striking his head. Patient was examined, and there were no gross neurodeficits. He was confused in his orientation though (inaccurately said the date). He was put in a c-collar and a STAT CT of head and C-spine were done. These showed no freature or hemorrhage and c collar removed. When he was by me, the discharging provider, he had normal strength and motion. Able to coordinate bilateral upper extremities. Greater than 30 minutes spent coordinating discharge. - ALLERGIES Allergies/Adverse Reactions: Allergies Allergy/AdvReac Type Severity Reaction Status Date / Time No Known Drug Allergies Allergy Verified 07/03/22 12:26 - MEDICATIONS Home Medications: Ambulatory Orders Medication Instructions Recorded Confirmed Aspirin EC [Ecotrin] 81 mg PO DAILY #30 tablet 06/28/22 07/04/22 Pnv No.121/Iron/Folic Acid 1 each PO DAILY #100 tablet 07/06/22 [ Multivitamin Tablet] Thiamine [Vitamin B-1] 100 mg PO DAILY tab 07/06/22 - PHYSICAL EXAM AT DISCHARGE General Appearance: positive: No acute distress, Alert Eyes Bilateral: positive: PERRL, EOMI ENT: positive: Pharynx nml, No signs of dehydration Neck: positive: No JVD. negative: Stiff neck Respiratory: positive: No respiratory distress. negative: Wheezes, Rales, Rhonchi Cardiovascular: positive: Regular rate & rhythm. negative: Tachycardia Peripheral Pulses: positive: 1+ Abdomen: positive: Non-tender, No organomegaly, Nml bowel sounds, No distention Skin: positive: Warm, Dry. negative: Diaphoresis, Pallor Extremities: positive: Full ROM, No pedal edema Neurologic/Psychiatric: positive: Oriented x3, CN's nml (2-12), Motor nml, Sensation nml - LABS Result Diagrams: 07/05/22 04:47 07/06/22 05:00
== END 2022-07-06 12:55 | disposition home or self-care (01) | DRG 897 ==
LOC: EDUNIT# → ED 11:55 → MS2 14:22 → OBSVTOIN 17:14 → ICU 17:47 → MS2 07-05 10:05
PROVIDERS: ADMIT Internal Medicine; ATTEND Specialist
DX: F10.131 Alcohol abuse with withdrawal delirium (principal); H55.00 Unspecified nystagmus; R27.0 Ataxia, unspecified; S09.90XA Unspecified injury of head, initial encounter; W19.XXXA Unspecified fall, initial encounter; Y92.230 Patient room in hospital as the place of occurrence of the external cause; F17.220 Nicotine dependence, chewing tobacco, uncomplicated; Z86.73 Personal history of transient ischemic attack (TIA), and cerebral infarction without residual deficits
CPT/HCPCS: 36415; 70450; 72125; 80053; 80306; 80320; 82140; 82330; 83690; 83735; 84100; 85025; 85610; 87150; 96365; 96375; 96376; 97161; 99284; 99285; A9270; G0378; J2060; J3411; J7040